=== PATIENT | female | born 1980 | race Caucasian/White ===

== ENCOUNTER 2020-03-17 11:19 | Emergency (ER) | payer OTHER ==
[2020-03-17 11:27] VITALS: BP 137/91; PULSE 100; RESP 18; TEMP 98.4
--- NOTE | 2020-03-17 11:40 | ED ---
Upper Extremity HPI - General Chief Complaint: Extremity Injury, Upper Stated Complaint: Fall/Arm injury Time Seen by Provider: 03/17/20 11:27 Source: patient, RN notes reviewed Mode of arrival: ambulatory Limitations: no limitations - History of Present Illness Initial Comments: This a 39-year-old female presents emergency from she went supple fall. Patient states she slipped on her wooden steps falling onto her left forearm. Patient states his bruising, pain. Patient has no pain at her left elbow or wrist. Patient is right-hand dominant no head injury no loss conscious no other injuries noted. - Related Data Allergies Allergy/AdvReac Type Severity Reaction Status Date / Time codeine AdvReac Nausea & Verified 03/17/20 11:27 Vomiting Review of Systems ROS Statement: Those systems with pertinent positive or pertinent negative responses have been documented in the HPI. ROS Other: All systems not noted in ROS Statement are negative. Past Medical History Past Medical History: Diabetes Mellitus Additional Past Medical History / Comment(s): DM type 1 History of Any Multi-Drug Resistant Organisms: None Reported Past Surgical History: Orthopedic Surgery Past Psychological History: No Psychological Hx Reported Smoking Status: Never smoker Past Alcohol Use History: Occasional Past Drug Use History: None Reported General Exam Limitations: no limitations General appearance: alert, in no apparent distress Head exam: Present: atraumatic, normocephalic, normal inspection Neck exam: Present: normal inspection, full ROM. Absent: tenderness, meningismus, lymphadenopathy Respiratory exam: Present: normal lung sounds bilaterally. Absent: respiratory distress, wheezes, rales, rhonchi, stridor Cardiovascular Exam: Present: regular rate, normal rhythm, normal heart sounds. Absent: systolic murmur, diastolic murmur, rubs, gallop, clicks Extremities exam: Present: other (Left arm there is ecchymosis on the ulnar aspect of the forearm, no tenderness to the wrist or elbow full range of motion neurovascular intact) Course Vital Signs 03/17/20 11:23 Temperature 98.4 F Pulse Rate 100 Respiratory 18 Rate Blood Pressure 137/91 O2 Sat by Pulse 97 Oximetry Medical Decision Making - Medical Decision Making X-rays were reviewed there are no acute fracture dislocation patient be disch arged with a left forearm contusion return parameters were discussed. Disposition Clinical Impression: Contusion of left forearm Disposition: HOME SELF-CARE Condition: Stable Instructions (If sedation given, give patient instructions): Arm Pain (ED) Additional Instructions: Please return to the Emergency Department if symptoms worsen or any other concerns. Is patient prescribed a controlled substance at d/c from ED?: No Referrals: None,Stated [Primary Care Provider] - 1-2 days Time of Disposition: 11:40
--- NOTE | 2020-03-17 11:45 | XR ---
EXAMINATION TYPE: XR forearm LT DATE OF EXAM: 03/17/2020 CLINICAL HISTORY: pain TECHNIQUE: Frontal and lateral images of the left forearm are obtained. COMPARISON: None. FINDINGS: There is no acute fracture/dislocation evident. The joint spaces appear within normal limi ts. The overlying soft tissue appears unremarkable. IMPRESSION: There is no acute fracture or dislocation. ICD 10 NO FRACTURE, INITIAL EVALUATION
== END 2020-03-17 11:51 | disposition home or self-care (01) ==
LOC: EC 11:19
DX: S50.12XA Contusion of left forearm, initial encounter (principal); W10.9XXA Fall (on) (from) unspecified stairs and steps, initial encounter; Z88.5 Allergy status to narcotic agent
CPT/HCPCS: 99283

== ENCOUNTER 2020-09-11 10:56 | Emergency (ER) | payer OTHER ==
[2020-09-11 11:08] VITALS: BP 121/86; PULSE 122; RESP 18; TEMP 98.1
--- NOTE | 2020-09-11 11:30 | ED ---
General Adult HPI - General Chief complaint: Skin/Abscess/Foreign Body Stated complaint: Boil on back Time Seen by Provider: 09/11/20 11:08 Source: patient, RN notes reviewed Mode of arrival: ambulatory Limitations: no limitations - History of Present Illness Initial comments: Patient is a pleasant 39-year-old female presenting to the emergency department with concern for a wound on her upper back. Patient believes there was a bug bite there. Patient states over the past several days it has progressively enlarged and become more discomfort. No fever. No history of similar symptoms previously. No other areas affected. - Related Data Previous Rx's Medication Instructions Recorded Sulfamethox-Tmp 800-160Mg [Bactrim 1 each PO Q12HR #14 tab 09/11/20 DS 800-160 mg] Allergies Allergy/AdvReac Type Severity Reaction Status Date / Time codeine AdvReac Nausea & Verified 09/11/20 11:04 Vomiting Review of Systems ROS Statement: Those systems with pertinent positive or pertinent negative responses have been documented in the HPI. ROS Other: All systems not noted in ROS Statement are negative. Constitutional: Denies: fever Eyes: Denies: eye pain ENT: Denies: ear pain Respiratory: Denies: cough Cardiovascular: Denies: chest pain, palpitations Endocrine: Denies: fatigue Gastrointestinal: Denies: abdominal pain Genitourinary: Denies: dysuria Musculoskeletal: Reports: as per HPI Skin: Reports: as per HPI Neurological: Denies: weakness Past Medical History Past Medical History: Diabetes Mellitus Additional Past Medical History / Comment(s): DM type 1 History of Any Multi-Drug Resistant Organisms: None Reported Past Surgical History: Orthopedic Surgery Past Psychological History: No Psychological Hx Reported Smoking Status: Never smoker Past Alcohol Use History: Occasional Past Drug Use History: None Reported General Exam Limitations: no limitations General appearance: alert, in no apparent distress Head exam: Present: normocephalic Eye exam: Present: normal appearance Respiratory exam: Present: normal lung sounds bilaterally Cardiovascular Exam: Present: regular rate, normal rhythm GI/Abdominal exam: Present: soft. Absent: tenderness Back exam: Present: other (Abscess) Skin exam: Present: other (Midline upper back near the T3 region with approximately 2 cm area of erythema with pinpoint pustule) Course Vital Signs 09/11/20 11:04 Temperature 98.1 F Pulse Rate 122 H Respiratory 18 Rate Blood Pressure 121/86 O2 Sat by Pulse 97 Oximetry Procedures - Incision & Drainage Consent Obtained: verbal consent Indication: Needle aspiration of abscess of back Site: back I&D Cleaning Method: Betadine Needle Aspiration Performed?: Yes I&D Drainage Obtained: Pus Patient Tolerated Procedure: well, no complications Disposition Clinical Impression: Back abscess Disposition: HOME SELF-CARE Condition: Stable Instructions (If sedation given, give patient instructions): Abscess (ED) Additional Instructions: Please do follow-up with primary care physician in the next couple days for recheck. Return for increased swelling, pain, redness, fever, worsening symptoms or other concerns. If symptoms worsen you may need incision and drainage with scalpel. Prescription for antibiotics has been sent to pharmacy. Prescriptions: Sulfamethox-Tmp 800-160Mg [Bactrim DS 800-160 mg] 1 each PO Q12HR #14 tab Is patient prescribed a controlled substance at d/c from ED?: No Referrals: Phill Toribio MD [Primary Care Provider] - 1-2 days Time of Disposition: 11:29
== END 2020-09-11 11:43 | disposition home or self-care (01) ==
LOC: EC 10:56
DX: L02.212 Cutaneous abscess of back [any part, except buttock and flank] (principal); E11.9 Type 2 diabetes mellitus without complications; Z88.6 Allergy status to analgesic agent
CPT/HCPCS: 10060; 87070; 87205; 99283

== ENCOUNTER 2020-10-16 08:02 | Emergency (ER) | payer OTHER ==
[2020-10-16 08:06] VITALS: BP 123/82; PULSE 100; RESP 16; TEMP 98.5
[2020-10-16] MEDS ORDERED: LIDOCAINE 1% INJ 10MG/ML (20 ML MDV) SQ ONE (08:37)
[2020-10-16] MEDS ORDERED: SULFAMETH-TMP DS STARTER PACK 2 TAB BTL PO STA (10:11)
[2020-10-16] MEDS ORDERED: CEPHALEXIN 500MG STARTER PACK 4 CAP BTL PO STA (10:11)
--- NOTE | 2020-10-16 10:16 | ED ---
General Adult HPI - General Chief complaint: Skin/Abscess/Foreign Body Stated complaint: Abcess on back Time Seen by Provider: 10/16/20 08:07 Source: patient, RN notes reviewed Mode of arrival: ambulatory Limitations: no limitations - History of Present Illness Initial comments: 39-year-old female presents to the emergency room for a chief complaint of abscess. Patient has had an abscess on her back for about a month. Patient states she did have a drain inserted antibiotics but the abscess came back. States she has been getting it to drain daily but it is not seeming to get better. Patient denies fevers. Patient denies any chest pain.Patient has no other complaints at this time including shortness of breath, chest pain, abdominal pain, nausea or vomiting, headache, or visual changes. - Related Data Previous Rx's Medication Instructions Recorded Sulfamethox-Tmp 800-160Mg [Bactrim 1 each PO Q12HR #14 tab 09/11/20 DS 800-160 mg] Cephalexin [Keflex] 500 mg PO Q6HR 10 Days #40 cap 10/16/20 Sulfamethox-Tmp 800-160Mg [Bactrim 1 tab PO Q12HR #20 tab 10/16/20 DS 800-160 mg] Allergies Allergy/AdvReac Type Severity Reaction Status Date / Time codeine AdvReac Nausea & Verified 10/16/20 08:03 Vomiting Review of Systems ROS Statement: Those systems with pertinent positive or pertinent negative responses have been documented in the HPI. ROS Other: All systems not noted in ROS Statement are negative. Past Medical History Past Medical History: Diabetes Mellitus Additional Past Medical History / Comment(s): DM type 1 History of Any Multi-Drug Resistant Organisms: None Reported Past Surgical History: Orthopedic Surgery Past Psychological History: No Psychological Hx Reported Smoking Status: Never smoker Past Alcohol Use History: Occasional Past Drug Use History: None Reported General Exam Limitations: no limitations General appearance: alert, in no apparent distress Head exam: Present: atraumatic Eye exam: Present: normal appearance, PERRL, EOMI. Absent: scleral icterus, conjunctival injection ENT exam: Present: normal exam, mucous membranes moist Neck exam: Present: normal inspection, full ROM. Absent: tenderness Respiratory exam: Present: normal lung sounds bilaterally. Absent: respiratory distress, wheezes Cardiovascular Exam: Present: regular rate, normal rhythm, normal heart sounds GI/Abdominal exam: Present: soft, normal bowel sounds. Absent: distended, tenderness Back exam: Present: other (Patient has a 8 x 6 cm abscess on the upper back to the right. 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 Incision and drainage was performed, copious purulent material expelled. The wound was packed. Patient was started on Bactrim and Keflex. At this time it is recommended patient follow-up with general surgery. Hopefully she can get in this week to remove packing. Dr. Pyle also evaluated patient. Patient could not get in to general surgery he recommends she come back to the emergency room Wednesday or Wednesday for packing removal so that we can reevaluate the wound. She will return for any worsening symptoms. Disposition Clinical Impression: Abscess Disposition: HOME SELF-CARE Condition: Good Instructions (If sedation given, give patient instructions): Abscess (ED) Additional Instructions: Please take antibiotics as directed. Try to follow up with surgery this week to have packing removed. If you cannot get in return to the ER for removal so we can recheck it on Wednesday or Wednesday. Return to the emergency room for any worsening symptoms. In the meantime do warm soaks. Prescriptions: Sulfamethox-Tmp 800-160Mg [Bactrim DS 800-160 mg] 1 tab PO Q12HR #20 tab Cephalexin [Keflex] 500 mg PO Q6HR 10 Days #40 cap Is patient prescribed a controlled substance at d/c from ED?: No Referrals: Phill Toribio MD [Primary Care Provider] - 1-2 days Tere Dowd MD [STAFF PHYSICIAN] - 1-2 days Time of Disposition: 10:11
== END 2020-10-16 10:32 | disposition home or self-care (01) ==
LOC: EC 08:02
DX: L02.212 Cutaneous abscess of back [any part, except buttock and flank] (principal); E10.9 Type 1 diabetes mellitus without complications; Z88.5 Allergy status to narcotic agent
CPT/HCPCS: 87070; 87205; 10061; 99283; J2001; 87077; 87186

== ENCOUNTER 2020-10-19 11:03 | Emergency (ER) | payer OTHER ==
--- NOTE | 2020-10-19 11:45 | ED ---
Recheck HPI - General Chief Complaint: Recheck/Abnormal Lab/Rx Stated Complaint: abscess-revisit Time Seen by Provider: 10/19/20 11:23 Source: patient Mode of arrival: ambulatory Limitations: no limitations - History of Present Illness Initial Comments: 39-year-old female presents to emergency department for a chief complaint of removing packing from an abscess. Patient reports she was advised to follow-up with the general surgeon but is not able to see one. States she came here to have the packing removed from her back. States it is still draining yellow discharge. States she has been taking her Bactrim and Keflex as prescribed. She denies any fevers or chills at home. She reports that she was changing the dressings as prescribed. She is a type I diabetic. - Related Data Previous Rx's Medication Instructions Recorded Sulfamethox-Tmp 800-160Mg [Bactrim 1 each PO Q12HR #14 tab 09/11/20 DS 800-160 mg] Cephalexin [Keflex] 500 mg PO Q6HR 10 Days #40 cap 10/16/20 Sulfamethox-Tmp 800-160Mg [Bactrim 1 tab PO Q12HR #20 tab 10/16/20 DS 800-160 mg] Allergies Allergy/AdvReac Type Severity Reaction Status Date / Time codeine AdvReac Nausea & Verified 10/19/20 11:20 Vomiting Review of Systems ROS Statement: Those systems with pertinent positive or pertinent negative responses have been documented in the HPI. ROS Other: All systems not noted in ROS Statement are negative. Past Medical History Past Medical History: Diabetes Mellitus Additional Past Medical History / Comment(s): DM type 1 History of Any Multi-Drug Resistant Organisms: None Reported Past Surgical History: Orthopedic Surgery Past Psychological History: No Psychological Hx Reported Smoking Status: Never smoker Past Alcohol Use History: Occasional Past Drug Use History: None Reported General Exam Limitations: no limitations General appearance: alert, in no apparent distress Head exam: Present: atraumatic, normocephalic, normal inspection Eye exam: Present: normal appearance, PERRL, EOMI Pupils: Present: normal accommodation ENT exam: Present: normal exam, normal oropharynx, mucous membranes moist Neck exam: Present: normal inspection, full ROM. Absent: tenderness Respiratory exam: Present: normal lung sounds bilaterally. Absent: respiratory distress Cardiovascular Exam: Present: regular rate, normal rhythm, normal heart sounds. Absent: systolic murmur Extremities exam: Present: normal inspection, full ROM Back exam: Present: full ROM. Absent: normal inspection (We'll draining abscess on the midthoracic region. Measuring about 7 cm in diameter. Nose a lytic skin changes around the abscess), tenderness (Minimal tenderness) Neurological exam: Present: alert, oriented X3 Psychiatric exam: Present: normal affect, normal mood Skin exam: Present: warm, dry, intact, normal color Course Vital Signs 10/19/20 10/19/20 11:18 12:33 Temperature 98.3 F 98.1 F Pulse Rate 101 H 80 Respiratory 18 17 Rate Blood Pressure 120/84 117/67 O2 Sat by Pulse 99 99 Oximetry Medical Decision Making - Medical Decision Making 39-year-old female presents to emergency department with a chief complaint of an abscess. A physical examination, I was able to remove the packing and still draining quite a bit of pustular discharge. After removed all of the available discharge, I cleaned the area and applied new packing until she is able to see the general surgeon on Wednesday. I advised to continue taking the antibiotics. Return parameters were discussed with patient is understanding and agreeable. Case discussed with Dr. Pyle. Disposition Clinical Impression: Encounter for wound re-check Disposition: HOME SELF-CARE Condition: Stable Instructions (If sedation given, give patient instructions): Abscess (ED) Additional Instructions: Please return to the Emergency Department if symptoms worsen or any other concerns. Is patient prescribed a controlled substance at d/c from ED?: No Referrals: Phill Toribio MD [Primary Care Provider] - 1-2 days Time of Disposition: 11:45
[2020-10-19 12:34] VITALS: BP 117/67; PULSE 80; RESP 17; TEMP 98.1
== END 2020-10-19 12:34 | disposition home or self-care (01) ==
LOC: EC 11:03
DX: Z48.00 Encounter for change or removal of nonsurgical wound dressing (principal); E10.9 Type 1 diabetes mellitus without complications
CPT/HCPCS: 99282

== ENCOUNTER 2020-10-25 15:25 | Day surgery (SDC) | payer OTHER ==
[2020-10-24 10:33] VITALS: BMI 21.2
--- NOTE | 2020-10-25 12:05 | P.GSHP ---
History of Present Illness H&P Date: 10/25/20 CHIEF COMPLAINT: Back mass HISTORY OF PRESENT ILLNESS: The patient is a 39 year-old female with mass along the mid back and drainage despite antibiotics and prior drainage. She presents today for surgical drainage and possible excision. PAST MEDICAL HISTORY: Please see list. PAST SURGICAL HISTORY: Please see list. MEDICATIONS: Please see list. ALLERGIES: Please see list. SOCIAL HISTORY: Please see list. FAMILY HISTORY: No reports of Crohn disease or ulcerative colitis. REVIEW OF ORGAN SYSTEMS: CONSTITUTIONAL: No reports of fevers or chills. GI: Denies any blood in stools or constipation. PHYSICAL EXAM: VITAL SIGNS: Stable Musculoskeletal: No clubbing cyanosis or edema SKIN: Mid back lesion 5 cm with purulent drainage GENERAL: Well developed and in no acute distress. Pleasant. HEENT: No sclera icterus. Extraocular movements grossly intact. Moist buccal mucosa. Head is atraumatic, normocephalic. Hears conversational speech. No nasal drainage. NECK: Supple without lymphadenopathy. No JV distention. CHEST: Non-labored respirations and equal bilateral excursions. CARDIOVASCULAR: Regular rate and rhythm. Palpable 2+ radial pulses. ABDOMEN: Soft. Non-tender. Nondistended. NEUROLOGIC: No focal or lateralizing signs. PSYCH: Appropriate affect. Alert and oriented to person, place and time. ASSESSMENT: 1. Mid back mass with drainage PLAN: 1. Will proceed of drainage of back mass with possible excision of subcutaneous tumor along the back. 2. DVT prophylaxis. 3. Antibiotic prophylaxis. 4. Time of recovery, at least one week. Past Medical History Past Medical History: Blood Disorder, Diabetes Mellitus Additional Past Medical History / Comment(s): DM type 1, MTHFR (diagnosed after miscarriages & received heparin with after that.)., Wound on back- open and draining. History of Any Multi-Drug Resistant Organisms: None Reported Past Surgical History: Orthopedic Surgery Additional Past Surgical History / Comment(s): 3 ACL reconstructions right knee, guide wire removal right knee, arthroscopy left knee. Past Anesthesia/Blood Transfusion Reactions: No Reported Reaction Past Psychological History: No Psychological Hx Reported Smoking Status: Former smoker Past Alcohol Use History: Occasional Additional Past Alcohol Use History / Comment(s): quit smoking 2006, hx of 1/2 ppd, started smoking age 19. Past Drug Use History: None Reported - Past Family History Mother Family Medical History: No Reported History Medications and Allergies Home Medications Medication Instructions Recorded Confirmed Type Cephalexin [Keflex] 500 mg PO Q6HR 10 Days #40 cap 10/16/20 10/24/20 Rx Sulfamethox-Tmp 800-160Mg [Bactrim 1 tab PO Q12HR #20 tab 10/16/20 10/24/20 Rx DS 800-160 mg] Ibuprofen [Motrin Ib] 800 mg PO BID 10/24/20 10/24/20 History Insulin NPH Human Isophane 20 units SQ HS 10/24/20 10/24/20 History [Novolin N Flexpen] Insulin Regular, Human [Novolin R 8 units SQ BID 10/24/20 10/24/20 History Flexpen] Allergies Allergy/AdvReac Type Severity Reaction Status Date / Time codeine AdvReac Nausea & Verified 10/24/20 10:08 Vomiting
[~2020-10-25 15:25] MED LIST: ACETAMINOPHEN TAB 500 MG TAB PO PRN; HEPARIN SODIUM,PORCINE/PF 5,000 UNIT/0.5 ML SYRINGE SQ PRN; MELOXICAM 7.5 MG TAB PO PRN
[2020-10-25 16:27] VITALS: RESP 16; TEMP 98.9
[2020-10-25] MEDS ORDERED: LACTATED RINGERS 1,000 ML IV ONE (16:31)
[2020-10-25 16:36] LABS: Glucose,Whole Blood 377 mg/dL (75-99)
[2020-10-25] MEDS ORDERED: ONDANSETRON 4 MG/2 ML VIAL ONE (16:41)
[2020-10-25 16:42] LABS: Basophils # (A) 0.1 k/uL (0-0.2); Basophils % (A) 1 %; Eosinophils # (A) 0.1 k/uL (0-0.7); Eosinophils % (A) 3 %; HCT 37.1 % (34.0-46.0); HGB 12.7 gm/dL (11.4-16.0); Lymphocytes # (A) 1.3 k/uL (1.0-4.8); Lymphocytes % (A) 26 %; MCH 31.4 pg (25.0-35.0); MCHC 34.2 g/dL (31.0-37.0); MCV 91.9 fL (80.0-100.0); Mean Platelet Volume 7.7; Monocytes # (A) 0.2 k/uL (0-1.0); Monocytes % (A) 4 %; Neutrophils # (A) 3.2 k/uL (1.3-7.7); Neutrophils % (A) 63 %; Platelet Count 345 k/uL (150-450); RBC 4.04 m/uL (3.80-5.40); RDW 12.7 % (11.5-15.5); WBC 5.1 k/uL (3.8-10.6)
[2020-10-25] MEDS ORDERED: INSULIN ASPART (NovoLOG) 100 UNIT/ML VIAL SQ ONE ×2 (16:49→17:42)
[2020-10-25 17:38] LABS: Glucose,Whole Blood 305 mg/dL (75-99)
[2020-10-25] MEDS ORDERED: MIDAZOLAM 2 MG/2 ML VIAL ONE (18:27)
[2020-10-25] MEDS ORDERED: fentaNYL (PF) 50 MCG/ML 2 ML AMP ONE (18:27)
[2020-10-25] MEDS ORDERED: LIDOCAINE 1% INJ 10MG/ML (20 ML MDV) ONE (18:27)
[2020-10-25] MEDS ORDERED: KETAMINE 10 MG/ML 20 ML VIAL ONE (18:27)
[2020-10-25] MEDS ORDERED: PROPOFOL 10 MG/ML 20 ML VIAL IV ONE (18:27)
[2020-10-25 18:31] LABS: Glucose,Whole Blood 182 mg/dL (75-99)
[2020-10-25] MEDS ORDERED: LIDOCAINE 1%-EPI 1:100,000 20 ML VIAL SQ ONE (18:42)
--- NOTE | 2020-10-25 19:29 | P.OP ---
Date of Procedure: 10/25/20 Description of Procedure: SURGEON: TERE DOWD MD ROOFER APPLICATOR: NONE. PREOPERATIVE DIAGNOSES: 1. Complex back abscess, 10 x 7 cm 2. Type 1 insulin-dependent diabetes POSTOPERATIVE DIAGNOSES: 1. Complex back abscess, 10 x 7 cm 2. Type 1 insulin-dependent diabetes OPERATION: 1. Incision and drainage of complex intramuscular upper back abscess, 10 x 7 cm 2. Mechanical debridement using 1 L of pulse lavage of complex upper back abscess, ANESTHESIA: Gen. ESTIMATED BLOOD LOSS: 5 mL. SPECIMENS REMOVED: 1. Aerobic, anaerobic culture of back abscess COMPLICATIONS: None. FINDINGS: 1. Subfascial intramuscular complex back abscess, 10 x 7 cm INDICATIONS: The patient subacute poorly draining erythematous large abscess of the upper back. Given the complexity and size of his abscess with sepsis, surgical intervention was advised. Benefits and risks were reviewed. Informed consent was obtained. DESCRIPTION OF PROCEDURE: Patient was brought into the operating room and laid in supine position. After adequate general induction, she was re-positioned in left lateral position The back was prepped and draped in a standard sterile fashion. Attention was then brought to the complex upper back mass measured 10 x 7 cm. Using a #15 blade a transverse incision was made along the skin tension lines. A hemostat was used to actually dissect through the subcutaneous tissue whereby the abscess was subfascial to the muscle. Immediately, an egress of benoit purulence was found and aerobic and anaerobic cultures were obtained. Using a pulse lavage of 1 L normal saline for mechanical debridement to the fascia, the deep subcutaneous pocket was copiously irrigated. Dilute hydrogen peroxide was used to irrigate the wound. A quarter-inch [place] drain was secured to the skin using 2-0 nylon. The wound was covered using Kerlix roll and 4 x 4 to cover the wound with 6 inch Medipore tape. The patient was awoken from anesthesia. All sponge and instrument counts were verified correct by surgical technology instructor. The patient was transferred to postanesthesia care unit in stable condition and pain free. Plan - Discharge Summary Discharge Rx Participant: No New Discharge Prescriptions: New Ibuprofen [Motrin] 600 mg PO Q8HR PRN #30 tab PRN Reason: Pain Acetaminophen [Tylenol] 650 mg PO Q4H #30 tab Continue Sulfamethox-Tmp 800-160Mg [Bactrim DS 800-160 mg] 1 tab PO Q12HR #20 tab Cephalexin [Keflex] 500 mg PO Q6HR 10 Days #40 cap Insulin NPH Human Isophane [Novolin N Flexpen] 20 units SQ HS Insulin Regular, Human [Novolin R Flexpen] 6 units SQ BID Discontinued Ibuprofen [Motrin Ib] 800 mg PO BID Discharge Medication List Cephalexin [Keflex] 500 mg PO Q6HR 10 Days #40 cap 10/16/20 [Rx] Sulfamethox-Tmp 800-160Mg [Bactrim DS 800-160 mg] 1 tab PO Q12HR #20 tab 10/16/20 [Rx] Insulin NPH Human Isophane [Novolin N Flexpen] 20 units SQ HS 10/24/20 [History] Insulin Regular, Human [Novolin R Flexpen] 6 units SQ BID 10/24/20 [History] Acetaminophen [Tylenol] 650 mg PO Q4H #30 tab 10/25/20 [Rx] Ibuprofen [Motrin] 600 mg PO Q8HR PRN #30 tab 10/25/20 [Rx] Follow up Appointment(s)/Referral(s): Tere Dowd MD [STAFF PHYSICIAN] - 10/31/20 Patient Instructions/Handouts: Incision and Drainage (ED), *Surgery [facility] - Managing Your Pain After Surgery Without Opioids Activity/Diet/Wound Care/Special Instructions: Change dressing daily. First dressing change tomorrow then shower. Cleanse with hydrogen peroxide full strength after showering Cover with gauze and Medipore tape supplied. Discharge Disposition: HOME SELF-CARE
[2020-10-25 19:31] VITALS: BP 113/73; PULSE 98
[2020-10-25 19:31] LABS: Glucose,Whole Blood 119 mg/dL (75-99)
== END 2020-10-25 19:52 | disposition home or self-care (01) ==
LOC: OR 15:25
PROVIDERS: ATTEND Surgery Plastic and Reconstructive Surgery
DX: L02.212 Cutaneous abscess of back [any part, except buttock and flank] (principal); E10.9 Type 1 diabetes mellitus without complications; Z79.4 Long term (current) use of insulin; Z98.890 Other specified postprocedural states
CPT/HCPCS: 10061; 11043; 11046; 81025; 85025; 87070; 87205; 87075; 87077; 87186; J2250; J0690; J2405; J2001; J3010; J2704; J1644

== ENCOUNTER → 2020-11-18 | Outpatient (CLI) | payer OTHER ==
--- NOTE | 2020-11-18 13:58 | US ---
EXAMINATION TYPE: US mass soft tissue chest/back DATE OF EXAM: 11/18/2020 COMPARISON: NONE CLINICAL HISTORY: L02.212 Cutaneous abscess of back. Mid upper back scanned in area of abscess drain. No obvious fluid or increased blood flow in region. Drain seen still in place. IMPRESSION: Limited scan to the soft tissues. No evident fluid collection.
== END | disposition home or self-care (01) ==
LOC: RADUSWWP 13:03
PROVIDERS: ATTEND Surgery Plastic and Reconstructive Surgery
DX: L02.212 Cutaneous abscess of back [any part, except buttock and flank] (principal)

== ENCOUNTER → 2022-07-20 | Day surgery (SDC) | payer OTHER ==
[2022-07-16 13:51] VITALS: BMI 22.1
[~2022-07-20] MED LIST changes: -ACETAMINOPHEN TAB 500 MG TAB PO PRN; -HEPARIN SODIUM,PORCINE/PF 5,000 UNIT/0.5 ML SYRINGE SQ PRN; -MELOXICAM 7.5 MG TAB PO PRN; +SODIUM CHLORIDE 0.9% 1,000 ML IV SCH
[2022-07-20 14:26] LABS: Glucose,Whole Blood 62 mg/dL (70-110)
--- NOTE | 2022-07-21 17:01 | P.EPPROC ---
- EP Procedure Note Electrophysiology Procedure Note: Diagnosis 41-year-old female with Recurrent presyncope Underlying diabetes, on insulin Twelve-lead EKG shows sinus rhythm normal AL narrow QRS normal ST segments normal QT interval Tilt table test per protocol Baseline heart rate 91 beats a minute Baseline blood pressure 134/85 mmHg Patient was tilted upright at an angle of 70 per protocol She had an immediate drop in blood pressure to 113/77 mmHg and a heart rate increased to 98 beats a minute Subsequently, heart rate increased to 109 beats a minute associated with a gradual drop in her blood pressure to the mid 90s systolic. 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
== END ==
LOC: CATHEP 12:44
PROVIDERS: ATTEND Internal Medicine Clinical Cardiac Electrophysiology
DX: I95.1 Orthostatic hypotension (principal); E10.649 Type 1 diabetes mellitus with hypoglycemia without coma; Z88.2 Allergy status to sulfonamides; Z88.5 Allergy status to narcotic agent; Z88.8 Allergy status to other drugs, medicaments and biological substances; Z79.899 Other long term (current) drug therapy; Z82.49 Family history of ischemic heart disease and other diseases of the circulatory system
CPT/HCPCS: 81025; 93660

== ENCOUNTER → 2022-10-13 | Outpatient (CLI) | payer OTHER ==
--- NOTE | 2022-10-14 08:20 | MM ---
Reason for Exam: Screening (asymptomatic). Baseline mammogram. Patient History: Menarche at age 17. First Full-Term at age 27. Maternal grandmother had breast cancer. Paternal grandmother had breast cancer. Last menstrual period: 09/30/2022 Risk Values: Jessica 5 year model risk: 0.5%. NCI Lifetime model risk: 10.2%. Prior Study Comparison: Patient's first Mammogram. Tissue Density: The breast tissue is extremely dense which could obscure a lesion on mammography. Findings: Analyzed By CAD. There is no suspicious group of microcalcifications or suspicious mass in either breast. Benign calcifications within the left breast. Overall Assessment: Benign, BI-RAD 2 Management: Screening Mammogram of both breasts in 1 year. A clinical breast exam by your physician is recommended on an annual basis and results should be correlated with mammographic findings. Note on Jessica scores and lifetime risk: 1. A Jessica score greater than 3% is considered moderate risk. If this is the case, consider specialist referral to assess eligibility for a risk reducing agent. If overall lifetime risk for the development of breast cancer is 20% or higher, the patient may qualify for future screening with alternating mammogram and breast MRI. Electronically signed and approved by: Mo Kellogg D.O.
== END | disposition home or self-care (01) ==
LOC: RADMAMWWP 06:57
PROVIDERS: ATTEND Family Medicine
DX: Z12.31 Encounter for screening mammogram for malignant neoplasm of breast (principal); Z80.3 Family history of malignant neoplasm of breast
CPT/HCPCS: 77067

== ENCOUNTER → 2023-02-18 | Outpatient (CLI) | payer OTHER ==
--- NOTE | 2023-02-18 18:13 | US ---
EXAMINATION TYPE: US pelvic complete DATE OF EXAM: 02/18/2023 COMPARISON: NONE CLINICAL INDICATION: Female, 42 years old with history of N92.4 EXCESSIVE BLEEDING IN THE PREMENOPAUS AL EMMA; Irregular periods x a couple months. Pt states her periods have gotten shorter, but heavier. . Hx of 1 D&C TECHNIQUE: . Transabdominal sonographic images of the pelvis were acquired. Date of LMP: 02/13/23 EXAM MEASUREMENTS: Uterus: 8.5 x 4.5 x 3.5 cm Endometrial Stripe: 0.4 cm Right Ovary: 3.5 x 1.9 x 1.3 cm Left Ovary: 3.8 x 3.0 x 1.5 cm 1. Uterus: Anteverted Hyperechoic calcification seen in cervix measuring 0.4 x 0.5 x 0.2cm 2. Endometrium: wnl 3. Right Ovary: Complex cystic area seen measuring 1.7 x 1.4 x 1.2cm 4. Left Ovary: Dominant follicle seen 5. Bilateral Adnexa: wnl 6. Posterior cul-de-sac: wnl Urinary bladder is sonolucent. The posterior wall is normal IMPRESSION: 1. Small complex cyst right ovary. Follow-up in 6 weeks or following the next normal menstrual period recommended
== END | disposition home or self-care (01) ==
LOC: RADUSWWP 16:09
PROVIDERS: ATTEND Obstetrics & Gynecology
DX: N83.291 Other ovarian cyst, right side (principal); N92.4 Excessive bleeding in the premenopausal period
CPT/HCPCS: 76856

== ENCOUNTER → 2023-03-29 | Outpatient (CLI) | payer OTHER ==
--- NOTE | 2023-03-30 13:01 | US ---
EXAMINATION TYPE: US pelvis complete DATE OF EXAM: 03/29/2023 COMPARISON: 02/18/22 CLINICAL INDICATION: Female, 42 years old with history of N83.201 UNSPECIFIED OVARIAN CYST, RIGHT RAKESH E; follow up cyst TECHNIQUE: Transabdominal (TA). Transabdominal sonographic images of the pelvis were acquired. Date of LMP: 03/16/2023 EXAM MEASUREMENTS: Uterus: 8.7x3.4x4.5 cm Endometrial Stripe: 0.6 cm Right Ovary: 3.2x3.4x1.4 cm Left Ovary: 3.3x2.5x2.0 cm 1. Uterus: Anteverted and otherwise wnl 2. Endometrium: wnl 3. Right Ovary: [employer] notes: prior cyst not identified with certainty. May have decreased in s ize and is now 0.8x1.0x1.0cm or ruptured as there is free fluid adjacent to ovary. 4. Left Ovary: [employer] notes: cystic area 1.8x1.8x1.9cm, cyst vs. dominant follicle 5. Bilateral Adnexa: Mild free fluid adjacent to right ovary. Otherwise, mostly obscured by overlying bowel gas 6. Posterior cul-de-sac: wnl IMPRESSION: 1. A 1 cm benign cyst or follicle remains in the right ovary. Small amount of free fluid adjacent to the right ovary is likely physiologic. 2. A 1.9 cm dominant follicle or functional cyst of the left ovary.
== END | disposition home or self-care (01) ==
LOC: RADUSWWP 15:14
PROVIDERS: ATTEND Obstetrics & Gynecology
DX: N83.02 Follicular cyst of left ovary (principal); N83.01 Follicular cyst of right ovary
CPT/HCPCS: 76856

== ENCOUNTER 2023-10-11 22:50 | Inpatient (IN) | payer OTHER ==
--- NOTE | 2023-10-11 23:41 | XR ---
EXAMINATION TYPE: XR chest 1V portable DATE OF EXAM: 10/11/2023 COMPARISON: NONE HISTORY: Abdominal pain, upright. Vomiting. TECHNIQUE: Single portable frontal view of the chest is obtained. FINDINGS: There is no focal air space opacity, pleural effusion, or pneumothorax seen. The cardiac silhouette size is within normal limits. The osseous structures are intact. IMPRESSION: No acute cardiopulmonary process.
[2023-10-11] MEDS: PANTOPRAZOLE 40 MG/10 ML VIAL IVP STA (23:48)
[2023-10-11] MEDS: ONDANSETRON 4 MG/2 ML VIAL IVP STA (23:48)
[2023-10-12] MEDS: SODIUM CHLORIDE 0.9% 500 ML 500 ML IV STA ×2 (00:01→01:25)
[2023-10-12] MEDS: SODIUM CHLORIDE 0.9% 1,000 ML IV STA (00:01)
--- NOTE | 2023-10-12 00:11 | ED ---
General Adult HPI - General Chief complaint: Nausea/Vomiting/Diarrhea Stated complaint: Vomiting Time Seen by Provider: 10/11/23 23:00 Source: patient, RN notes reviewed, old records reviewed Mode of arrival: ambulatory Limitations: no limitations - History of Present Illness Initial comments: Patient is a 42-year-old female presents emergency department complaining of nausea and vomiting. Has been ongoing since 3 PM. Has had numerous episodes of nausea with somewhat dark green emesis that has gotten somewhat darker, towards black this evening. No abdominal pain or chest pain. No shortness of breath. Does have a history of diabetes. Sugars have been in the 200s. Patient has no other acute complaints at this time. Denies fevers, chills, cough, diarrhea, constipation. No history of abdominal surgeries. Presents for further ev aluation at this time.No history of alcohol abuse. No frequent use of Tylenol or Motrin. No history of ulcers. No history of persistent NSAID use. No history of ulcers. No history of alcohol abuse. - Related Data Home Medications Medication Instructions Recorded Confirmed Insulin Aspart [NovoLOG] 0 units SQ ACHS PRN 07/16/22 07/16/22 Insulin Glargine,Hum.rec.anlog 32 units SQ HS 07/16/22 07/16/22 [Toujeo Solostar] Allergies Allergy/AdvReac Type Severity Reaction Status Date / Time codeine AdvReac Nausea & Verified 07/16/22 13:43 Vomiting lisinopril AdvReac Cough Verified 10/11/23 22:55 Review of Systems ROS Statement: Those systems with pertinent positive or pertinent negative responses have been documented in the HPI. Review of Systems: CONST: Denies fever EYES: Denies blurry vision ENT: Denies nasal congestion C/V: Denies Chest pain RESP: Denies shortness of breath GI: Denies abdominal pain : Denies dysuria SKIN: Denies rash. MSK: Denies joint pain. NEURO: Denies headache ROS Other: All systems not noted in ROS Statement are negative. Past Medical History Past Medical History: Blood Disorder, Diabetes Mellitus Additional Past Medical History / Comment(s): See Dr Wilson's H&P,dizziness, DM type 1, MTHFR (diagnosed after miscarriages & received heparin with after that.)., Wound on back- healed History of Any Multi-Drug Resistant Organisms: None Reported Past Surgical History: Orthopedic Surgery Additional Past Surgical History / Comment(s): 3 ACL reconstructions right knee, guide wire removal right knee, arthroscopy left knee,D&C ,I&D back wound w/ drain Past Anesthesia/Blood Transfusion Reactions: No Reported Reaction Additional Past Anesthesia/Blood Transfusion Reaction / Comment(s): no hx blood transfusion Past Psychological History: No Psychological Hx Reported Smoking Status: Former smoker Past Alcohol Use History: Occasional Past Drug Use History: None Reported - Past Family History Mother Family Medical History: No Reported History General Exam - General Exam Comments Initial Comments: General: Appears in mild to moderate distress secondary to nausea and vomiting HEAD: Normal with no signs of head trauma. EYES: PERRLA, EOMI, conjunctiva normal, no discharge. ENT: Hearing grossly intact, normal oropharynx. Mildly dry mucous membranes. RESPIRATORY: Clear breath sounds bilaterally. No wheezes, rales, or rhonchi. C/V: Regular rate and rhythm. S1 and S2 auscultated, no edema, peripheral pulses 2+ and intact throughout ABD: Abd is soft, nontender, nondistended. No guarding. No rebound tenderness. No peritoneal signs. EXT: Normal range of motion, no obvious deformity SKIN: No rashes or lesions observed on exposed skin. NEURO: Alert and oriented x 4. Cranial nerves II-XII intact. No focal sensory or strength deficits. Limitations: no limitations Course Vital Signs 10/11/23 10/12/23 22:52 00:54 Temperature 98.2 F Pulse Rate 114 H 97 Respiratory 16 18 Rate Blood Pressure 108/68 O2 Sat by Pulse 99 98 Oximetry Medical Decision Making - Medical Decision Making Was pt. sent in by a medical professional or institution (, PA, ACTIONSCRIPT DEVELOPER, urgent care, hospital, or longterm...) When possible be specific @ -No Did you speak to anyone other than the patient for history (EMS, parent, family, police, friend...)? What history was obtained from this source @ -No Did you review nursing and triage notes (agree or disagree)? Why? @ -I reviewed and agree with nursing and triage notes Were old charts reviewed (outside hosp., previous admission, EMS record, old EKG, old radiological studies, urgent care reports/EKG's, longterm records)? Report findings @ -No old charts were reviewed Differential Diagnosis (chest pain, altered mental status, abdominal pain women, abdominal pain men, vaginal bleeding, weakness, fever, dyspnea, syncope, headache, dizziness, GI bleed, back pain, seizure, CVA, palpatations, mental health, musculoskeletal)? @ -Dehydration, electrolyte abnormalities, DKA, viral syndrome, intractable nausea and vomiting. This list is not all inclusive. EKG interpreted by me (3pts min.). @ -As above X-rays interpreted by me (1pt min.). @ -Chest x-ray reveals no free air under the diaphragm. No acute cardiopulmon hamida process. CT interpreted by me (1pt min.). @ -None done U/S interpreted by me (1pt. min.). @ -No What testing was considered but not performed or refused? (CT, X-rays, U/S, labs)? Why? @ -None What meds were considered but not given or refused? Why? @ -None Did you discuss the management of the patient with other professionals (professionals i.e. , PA, ACTIONSCRIPT DEVELOPER, lab, RT, psych nurse, social services manager, technology support analyst, teacher, weapons electrical engineering officer, rn case manager)? Give summary @ -Discussed with Dr. Pickard regarding the patient's DKA workup as well as the positive gastric occult blood. With the patient having stable hemoglobin as well as normal coags and not being high risk including no history of alcohol abuse, persistent NSAID or Tylenol use. Was in agreement with keeping the patient at our hospital at this time. Was smoking cessation discussed for >3mins.? @ -No Was critical care preformed (if so, how long)? @ -Yes, 41 minutes Were there social determinants of health that impacted care today? How? (Homelessness, low income, unemployed, alcoholism, drug addiction, transportation, low edu. Level, literacy, decrease access to med. care, correction, rehab)? @ -No Was there de-escalation of care discussed even if they declined (Discuss DNR or withdrawal of care, Hospice)? DNR status @ -No What co-morbidities impacted this encounter? (DM, HTN, Smoking, COPD, CAD, Cancer, CVA, ARF, Chemo, Hep., AIDS, mental health diagnosis, sleep apnea, morbid obesity)? @ -None Was patient admitted / discharged? Hospital course, mention meds given and route, prescriptions, significant lab abnormalities, going to OR and other pertinent info. @ -Patient presents to the emergency department complaining of intractable nausea and vomiting since 3 PM this afternoon. Emesis is a darker green color, progressing to more darker green versus black color this evening upon presentation. We will obtain abdominal labs. She will be symptomatically treat with IV fluids, Protonix, Zofran. Patient will be given a total of a liter and a half of fluids. Patient was in agreement this plan. EKG shows no signs of acute ischemia.Chest x-ray shows no free air under the diaphragm. No obvious acute cardiopulmonary process. Labs remarkable for leukocytosis of 17.3 which is likely dehydration. Hemoglobin is normal at 14.0. Coags are normal. Patient's electrolytes and VBG consistent with DKA. Positive acetone. Gastric occult blood did return positive. I discussed at length with the patient the results of her workup. I did speak with the admitting physician, Dr. Pickard who was in agreement with the plan for admission. I did update him and discussed the findings of the positive gastric occult blood and as the patient has no risk factors for GI bleeding was amenable for observing the patient at our hospital at this time despite having no GI coverage. I did discuss this the patient and she was also in agreement with remaining at our hospital. Patient placed on DKA protocol including insulin drip, IV fluids. Patient will be admitted at this time. No subsequent episodes of nausea or vomiting after medication administration. Undiagnosed new problem with uncertain prognosis? @ -No Drug Therapy requiring intensive monitoring for toxicity (Heparin, Nitro, Insulin, Cardizem)? @ -Insulin Were any procedures done? @ -No Diagnosis/symptom? @ -DKA Acute, or Chronic, or Acute on Chronic? @ -Acute Uncomplicated (without systemic symptoms) or Complicated (systemic symptoms)? @ -Complicated Side effects of treatment? @ -None Exacerbation, Progression, or Severe Exacerbation] @ -No Poses a threat to life or bodily function? @ -Yes - Lab Data Result diagrams: 10/12/23 00:08 10/12/23 00:08 Lab Results 10/12/23 10/12/23 10/12/23 Range/Units 00:08 00:08 00:08 WBC 17.3 H (3.8-10.6) k/uL RBC 4.67 (3.80-5.40) m/uL Hgb 14.0 (11.4-16.0) gm/dL Hct 43.7 (34.0-46.0) % MCV 93.6 (80.0-100.0) fL MCH 30.1 (25.0-35.0) pg MCHC 32.1 (31.0-37.0) g/dL RDW 11.9 (11.5-15.5) % Plt Count 239 (150-450) k/uL MPV 9.2 Neutrophils % 93 % Lymphocytes % 4 % Monocytes % 2 % Eosinophils % 0 % Basophils % 0 % Neutrophils # 16.0 H (1.3-7.7) k/uL Lymphocytes # 0.7 L (1.0-4.8) k/uL Monocytes # 0.4 (0-1.0) k/uL Eosinophils # 0.0 (0-0.7) k/uL Basophils # 0.1 (0-0.2) k/uL Hypochromasia Slight PT 10.7 (10.0-12.5) sec INR 1.0 (<1.2) APTT 21.1 L (22.0-30.0) sec VBG pH (7.31-7.41) VBG pCO2 (37-51) mmHg VBG HCO3 (24-28) mmol/L Sodium (137-145) mmol/L Potassium (3.5-5.1) mmol/L Chloride (98-107) mmol/L Carbon Dioxide (22-30) mmol/L Anion Gap mmol/L BUN (7-17) mg/dL Creatinine (0.52-1.04) mg/dL Est GFR (CKD-EPI)AfAm (>60 ml/min/1.73 sqM) Est GFR (CKD-EPI)NonAf (>60 ml/min/1.73 sqM) Glucose (74-99) mg/dL Calcium (8.4-10.2) mg/dL Total Bilirubin (0.2-1.3) mg/dL AST (14-36) U/L ALT (4-34) U/L Alkaline Phosphatase (38-126) U/L Total Protein (6.3-8.2) g/dL Albumin (3.5-5.0) g/dL Amylase (30-110) U/L Lipase (23-300) U/L HCG, Qual Urine Color Colorless Urine Appearance Clear (Clear) Urine pH 5.5 (5.0-8.0) Ur Specific [place] 1.025 (1.001-1.035) Urine Protein Negative (Negative) Urine Glucose (UA) 4+ H (Negative) Urine Ketones 4+ H (Negative) Urine Blood Negative (Negative) Urine Nitrite Negative (Negative) Urine Bilirubin Negative (Negative) Urine Urobilinogen <2.0 (<2.0) mg/dL Ur Leukocyte Esterase Trace H (Negative) Urine RBC 1 (0-5) /hpf Urine WBC 13 H (0-5) /hpf Ur Squamous Epith Cells <1 (0-4) /hpf Urine Bacteria Rare H (None) /hpf Urine Mucus Rare H (None) /hpf Gastric Occult Blood (Negative) Acetone, Qual (Negative) 10/12/23 10/12/23 10/12/23 Range/Units 00:08 00:08 00:08 WBC (3.8-10.6) k/uL RBC (3.80-5.40) m/uL Hgb (11.4-16.0) gm/dL Hct (34.0-46.0) % MCV (80.0-100.0) fL MCH (25.0-35.0) pg MCHC (31.0-37.0) g/dL RDW (11.5-15.5) % Plt Count (150-450) k/uL MPV Neutrophils % % Lymphocytes % % Monocytes % % Eosinophils % % Basophils % % Neutrophils # (1.3-7.7) k/uL Lymphocytes # (1.0-4.8) k/uL Monocytes # (0-1.0) k/uL Eosinophils # (0-0.7) k/uL Basophils # (0-0.2) k/uL Hypochromasia PT (10.0-12.5) sec INR (<1.2) APTT (22.0-30.0) sec VBG pH 7.11 L* (7.31-7.41) VBG pCO2 28 L (37-51) mmHg VBG HCO3 9 L* (24-28) mmol/L Sodium 138 (137-145) mmol/L Potassium 4.8 (3.5-5.1) mmol/L Chloride 107 (98-107) mmol/L Carbon Dioxide <5 L* (22-30) mmol/L Anion Gap mmol/L BUN 21 H (7-17) mg/dL Creatinine 0.87 (0.52-1.04) mg/dL Est GFR (CKD-EPI)AfAm >90 (>60 ml/min/1.73 sqM) Est GFR (CKD-EPI)NonAf 84 (>60 ml/min/1.73 sqM) Glucose 268 H (74-99) mg/dL Calcium 9.8 (8.4-10.2) mg/dL Total Bilirubin 1.3 (0.2-1.3) mg/dL AST 26 (14-36) U/L ALT 24 (4-34) U/L Alkaline Phosphatase 100 (38-126) U/L Total Protein 8.0 (6.3-8.2) g/dL Albumin 5.0 (3.5-5.0) g/dL Amylase 40 (30-110) U/L Lipase 51 (23-300) U/L HCG, Qual Not Detected Urine Color Urine Appearance (Clear) Urine pH (5.0-8.0) Ur Specific [place] (1.001-1.035) Urine Protein (Negative) Urine Glucose (UA) (Negative) Urine Ketones (Negative) Urine Blood (Negative) Urine Nitrite (Negative) Urine Bilirubin (Negative) Urine Urobilinogen (<2.0) mg/dL Ur Leukocyte Esterase (Negative) Urine RBC (0-5) /hpf Urine WBC (0-5) /hpf Ur Squamous Epith Cells (0-4) /hpf Urine Bacteria (None) /hpf Urine Mucus (None) /hpf Gastric Occult Blood Positive (Negative) Acetone, Qual Positive (Negative) - EKG Data -: EKG Interpreted by Me EKG Comments: 12-lead Electrocardiogram Interpretation Note EKG was reviewed and interpreted by myself. 12-lead ECG performed at 2326 is interpreted by me as revealing sinus tachycardia at a rate of 110 beats per minute. Indeterminate axis. NC interval is 112 ms, QRS duration is 91 ms, QTc is 408 ms.. There were no ST or T wave abnormalities to suggest myocardial ischemia or injury. R wave progression across the precordium was satisfactory. By my interpretation this EKG is non-diagnostic for acute ischemia. Critical Care Time Critical Care Time: Yes Total Critical Care Time: 41 Disposition Clinical Impression: DKA (diabetic ketoacidosis) Disposition: ADMITTED IP TO THIS HOSP Condition: Serious Referrals: Nivia Leyva DO [Primary Care Provider] - 1-2 days Time of Disposition: 01:20
[2023-10-12 00:26] LABS: Basophils # (A) 0.1 k/uL (0-0.2); Basophils % (A) 0 %; Eosinophils % (A) 0 %; HCT 43.7 % (34.0-46.0); Hypochromasia Slight; Lymphocytes # (A) 0.7 k/uL (1.0-4.8); Lymphocytes % (A) 4 %; MCH 30.1 pg (25.0-35.0); MCHC 32.1 g/dL (31.0-37.0); MCV 93.6 fL (80.0-100.0); Mean Platelet Volume 9.2; Monocytes # (A) 0.4 k/uL (0-1.0); Monocytes % (A) 2 %; Neutrophils % (A) 93 %; Platelet Count 239 k/uL (150-450); RBC 4.67 m/uL (3.80-5.40); RDW 11.9 % (11.5-15.5); WBC 17.3 k/uL (3.8-10.6)
[2023-10-12 00:34] LABS: VBG PH 7.11 (7.31-7.41)
[2023-10-12 00:39] LABS: ALT 24 U/L (4-34); AST 26 U/L (14-36); African American GFR (CKD) >90 (>60 ml/min/1.73 sqM); Alkaline Phosphatase 100 U/L (38-126); Amylase 40 U/L (30-110); Blood Urea Nitrogen 21 mg/dL (7-17); Calcium 9.8 mg/dL (8.4-10.2); Chloride 107 mmol/L (98-107); Glucose 268 mg/dL (74-99); Lipase 51 U/L (23-300); Non-African American GFR(CKD) 84 (>60 ml/min/1.73 sqM); Potassium 4.8 mmol/L (3.5-5.1); Sodium 138 mmol/L (137-145); Total Bilirubin 1.3 mg/dL (0.2-1.3)
[2023-10-12 00:45] LABS: Carbon Dioxide <5 mmol/L (22-30)
[2023-10-12 00:49] LABS: Appearance,Urine Clear (Clear); Bacteria,Urine Rare /hpf; Bilirubin,Urine Negative (Negative); Blood,Urine Negative (Negative); Color,Urine Colorless; Glucose,Urine (UA) 4+ (Negative); Leukocyte Esterase,Urine Trace (Negative); Mucus,Urine Rare /hpf; Nitrite,Urine Negative (Negative); PH, Urine 5.5 (5.0-8.0); Protein,Urine Negative (Negative); RBC,Urine 1 /hpf (0-5); Specific Gravity,Urine 1.025 (1.001-1.035); Squamous Epithelial Cell,Urine <1 /hpf (0-4); Urobilinogen,Urine <2.0 mg/dL (<2.0); WBC,Urine 13 /hpf (0-5)
[2023-10-12 00:50] LABS: HCG,Qualitative Serum Not Detected
[2023-10-12] MEDS ORDERED: DEXTROSE 50% SYRINGE 50 ML IVP PRN (00:52)
[2023-10-12] MEDS ORDERED: Potassium Replacement Protocol 1 EACH MISC MISCELLANE PRN (00:52)
[2023-10-12] MEDS ORDERED: Magnesium Replacement Protocol 1 EACH MISC MISCELLANE PRN (00:52)
[2023-10-12 00:53] LABS: Ketones,Urine 4+ (Negative)
[2023-10-12 00:54] LABS: Prothrombin Time 10.7 sec (10.0-12.5)
[2023-10-12 01:01] LABS: Partial Thromboplastin Time 21.1 sec (22.0-30.0)
[2023-10-12] MEDS ORDERED: NALOXONE 0.4 MG/ML 1 ML VIAL IV PRN (01:21)
[2023-10-12] MEDS ORDERED: ACETAMINOPHEN TAB 325 MG TAB PO PRN (01:21)
[2023-10-12] MEDS: INSULIN REGULAR BOLUS (FROM DRIP BAG) IV ONE (01:48)
[2023-10-12] MEDS: INSULIN REGULAR 100 UNIT in SODIUM CHLORIDE 0.9% 100 ML IV SCH (01:49)
[2023-10-12] MEDS: SODIUM CHLORIDE 0.9% 1,000 ML IV SCH (01:52)
--- NOTE | 2023-10-12 02:15 | US ---
EXAMINATION TYPE: US gallbladder DATE OF EXAM: 10/12/2023 COMPARISON: NONE CLINICAL INDICATION: Female, 42 years old with history of n/v; n/v TECHNIQUE: Multiple sonographic images of the right upper quadrant are obtained. FINDINGS: EXAM MEASUREMENTS: Liver Length: 14.1 cm Gallbladder Wall: 0.1 cm CBD: 0.5 cm Right Kidney: 11.1 x 4.8 x 4.5 cm CUTTING TABLE OPERATOR FIRST NOTES: Pancreas: parts seen appear wnl Liver: Hyperechoic area seen in rt lobe measuring 2.1 x 1.8 x 2.1cm Gallbladder: wnl Evidence for sonographic Mulligan's sign: No CBD: wnl Right Kidney: wnl IMPRESSION: No gallstones or ultrasound evidence for acute cholecystitis.
[2023-10-12] MEDS: D5-0.45% NACL WITH KCL 20MEQ/L 1,000 ML IV SCH (02:40)
[2023-10-12 02:54] LABS: Glucose,Whole Blood 162 mg/dL (70-110)
[2023-10-12 03:48] LABS: Glucose,Whole Blood 146 mg/dL (70-110)
[2023-10-12 05:04] LABS: Glucose,Whole Blood 136 mg/dL (70-110)
[2023-10-12 05:59] LABS: Glucose,Whole Blood 140 mg/dL (70-110)
[2023-10-12] MEDS: ONDANSETRON 4 MG/2 ML VIAL IVP PRN (06:48)
[2023-10-12 07:21] LABS: Glucose,Whole Blood 186 mg/dL (70-110)
[2023-10-12 08:15] LABS: African American GFR (CKD) >90 (>60 ml/min/1.73 sqM); Anion Gap 16 mmol/L; Blood Urea Nitrogen 18 mg/dL (7-17); Chloride 116 mmol/L (98-107); Glucose 216 mg/dL (74-99); Non-African American GFR(CKD) 90 (>60 ml/min/1.73 sqM); Phosphorus 2.9 mg/dL (2.5-4.5); Potassium 4.6 mmol/L (3.5-5.1); Sodium 138 mmol/L (137-145)
[2023-10-12 08:18] LABS: Carbon Dioxide 6 mmol/L (22-30)
[2023-10-12] MEDS: PANTOPRAZOLE 40 MG/10 ML VIAL IV SCH (08:18)
[2023-10-12 08:21] LABS: Glucose,Whole Blood 240 mg/dL (70-110)
--- NOTE | 2023-10-12 09:26 | P.HPIM ---
History of Present Illness This is a pleasant 42 years old female with past medical history of type 1 diabetes mellitus on long-acting insulin and Jardiance at home. Patient states that she was out of green party here around town for 3 days and she forgot to take her insulin with her Yesterday she started having continuous vomiting nonstop, it looks like there is some coffee-ground discoloration of the vomitus Patient denies abdominal pain. No diarrhea. No issues with the bowel movement Patient denies chest pain or dizziness or dyspnea. No headache weakness or numbness No urinary complaints no dysuria She denies smoking or illicit drugs, she drinks alcohol occasionally. At home patient takes long-acting insulin 16 units at bedtime plus Jardiance 25 units plus NovoLog sliding scale. She has a glucometer at home and glucose range prior to hospitalization was 200-2 50 On admission she is afebrile, she is mildly hypotensive and tachycardic, blood pressure 85/57 after fluid resuscitation we will going to give another 1 L of bolus of NS pH is low at 7.11, pCO2 is all low as well at 28, potassium normal 4.6, urine analysis showing positive ketone. Patient has positive occult blood in the vomitus Rest of labs including INR, BMP liver enzymes troponin were unremarkable Urine hCG is negative, I offered to do serum hCG but patient declines Ultrasound of the abdomen is negative for gallstone or gallbladder disease. Review of Systems Review of systems CONSTITUTIONAL: No fever, no malaise, no fatigue. HEENT: No recent visual problems or hearing problems. Denied any sore throat. CARDIOVASCULAR: No orthopnea, PND, no palpitations, no syncope. PULMONARY: No shortness of breath, no cough, no hemoptysis. GASTROINTESTINAL: No diarrhea, no abdominal pain. Normoactive bowel sounds. NEUROLOGICAL: No headaches, no weakness, no numbness. HEMATOLOGICAL: Denies any bleeding or petechiae. GENITOURINARY: Denies any burning micturition, frequency, or urgency. MUSCULOSKELETAL/RHEUMATOLOGICAL: Denies any joint pain, swelling, or any muscle pain. ENDOCRINE: Denies any polyuria or polydipsia. Past Medical History Past Medical History: Blood Disorder, Diabetes Mellitus Additional Past Medical History / Comment(s): See Dr Wilson's H&P,dizziness, DM type 1, MTHFR (diagnosed after miscarriages & received heparin with after that.)., Wound on back- healed History of Any Multi-Drug Resistant Organisms: None Reported Past Surgical History: Orthopedic Surgery Additional Past Surgical History / Comment(s): 3 ACL reconstructions right knee, guide wire removal right knee, arthroscopy left knee,D&C ,I&D back wound w/ drain Past Anesthesia/Blood Transfusion Reactions: No Reported Reaction Additional Past Anesthesia/Blood Transfusion Reaction / Comment(s): no hx blood transfusion Past Psychological History: No Psychological Hx Reported Smoking Status: Former smoker Past Alcohol Use History: Occasional Past Drug Use History: None Reported - Past Family History Mother Family Medical History: No Reported History Medications and Allergies Home Medications Medication Instructions Recorded Confirmed Type Insulin Aspart [NovoLOG] See Protocol SQ ACHS PRN 07/16/22 10/12/23 History Insulin Glargine,Hum.rec.anlog 16 units SQ HS 07/16/22 10/12/23 History [Eugenio Seo] Empagliflozin [Jardiance] 25 mg PO DAILY 10/12/23 10/12/23 History prednisoLONE ACETATE 1% OPHTH 1 dose LEFT EYE DIRECTED 10/12/23 10/12/23 History [Pred Forte 1%] Allergies Allergy/AdvReac Type Severity Reaction Status Date / Time codeine AdvReac Nausea & Verified 10/12/23 08:28 Vomiting lisinopril AdvReac Cough Verified 10/12/23 08:28 Physical Exam Vitals: Vital Signs Temp Pulse Resp BP Pulse Ox 10/12/23 06:00 120 H 18 86/57 98 10/12/23 02:43 121 H 18 125/58 99 10/12/23 00:54 97 18 98 10/11/23 22:52 98.2 F 114 H 16 108/68 99 Intake and Output 10/11/23 10/12/23 10/12/23 22:59 06:59 14:59 Intake Total 16.393 Balance 16.393 Intake: Intake, IV Titration 16.393 Amount Insulin Regular 100 unit 16.393 In Sodium Chloride 0.9% 100 ml @ 0.1 UNITS/KG/HR 5.727 mls/hr IV .[id number] [facility] Rx#:[id number] Other: Weight 56.699 kg GENERAL: The patient is alert and oriented x3, not in any acute distress. Well developed, well nourished. HEENT: Pupils are round and equally reacting to light. EOMI. No scleral icterus. No conjunctival pallor. Normocephalic, atraumatic. No pharyngeal erythema. No thyromegaly. CARDIOVASCULAR: S1 and S2 present. No murmurs, rubs, or gallops. PULMONARY: Chest is clear to auscultation, no wheezing , no crackles. -ABDOMEN: Soft, nontender, nondistended, normoactive bowel sounds. No palpable organomegaly. Coffee-ground colored vomitus on the tongue and the bowl next to the bedside MUSCULOSKELETAL: No joint swelling or deformity. EXTREMITIES: No cyanosis, clubbing, or pedal edema. NEUROLOGICAL: Gross neurological examination did not reveal any focal deficits. SKIN: No rashes. no petechiae. Results CBC & Chem 7: 10/12/23 00:08 10/12/23 07:39 Labs: Abnormal Lab Results - Last 24 Hours (Table) 10/12/23 10/12/23 10/12/23 Range/Units 00:08 00:08 00:08 WBC 17.3 H (3.8-10.6) k/uL Neutrophils # 16.0 H (1.3-7.7) k/uL Lymphocytes # 0.7 L (1.0-4.8) k/uL APTT 21.1 L (22.0-30.0) sec VBG pH (7.31-7.41) VBG pCO2 (37-51) mmHg VBG HCO3 (24-28) mmol/L Chloride (98-107) mmol/L Carbon Dioxide (22-30) mmol/L BUN (7-17) mg/dL Glucose (74-99) mg/dL POC Glucose (mg/dL) (70-110) mg/dL Plasma Lactic Acid Qasim (0.7-2.0) mmol/L Urine Glucose (UA) 4+ H (Negative) Urine Ketones 4+ H (Negative) Ur Leukocyte Esterase Trace H (Negative) Urine WBC 13 H (0-5) /hpf Urine Bacteria Rare H (None) /hpf Urine Mucus Rare H (None) /hpf 10/12/23 10/12/23 10/12/23 Range/Units 00:08 00:08 00:08 WBC (3.8-10.6) k/uL Neutrophils # (1.3-7.7) k/uL Lymphocytes # (1.0-4.8) k/uL APTT (22.0-30.0) sec VBG pH 7.11 L* (7.31-7.41) VBG pCO2 28 L (37-51) mmHg VBG HCO3 9 L* (24-28) mmol/L Chloride (98-107) mmol/L Carbon Dioxide <5 L* (22-30) mmol/L BUN 21 H (7-17) mg/dL Glucose 268 H (74-99) mg/dL POC Glucose (mg/dL) (70-110) mg/dL Plasma Lactic Acid Qasim 2.2 H* (0.7-2.0) mmol/L Urine Glucose (UA) (Negative) Urine Ketones (Negative) Ur Leukocyte Esterase (Negative) Urine WBC (0-5) /hpf Urine Bacteria (None) /hpf Urine Mucus (None) /hpf 10/12/23 10/12/23 10/12/23 Range/Units 02:52 03:47 05:02 WBC (3.8-10.6) k/uL Neutrophils # (1.3-7.7) k/uL Lymphocytes # (1.0-4.8) k/uL APTT (22.0-30.0) sec VBG pH (7.31-7.41) VBG pCO2 (37-51) mmHg VBG HCO3 (24-28) mmol/L Chloride (98-107) mmol/L Carbon Dioxide (22-30) mmol/L BUN (7-17) mg/dL Glucose (74-99) mg/dL POC Glucose (mg/dL) 162 H 146 H 136 H (70-110) mg/dL Plasma Lactic Acid Qasim (0.7-2.0) mmol/L Urine Glucose (UA) (Negative) Urine Ketones (Negative) Ur Leukocyte Esterase (Negative) Urine WBC (0-5) /hpf Urine Bacteria (None) /hpf Urine Mucus (None) /hpf 10/12/23 10/12/23 10/12/23 Range/Units 05:57 07:20 07:39 WBC (3.8-10.6) k/uL Neutrophils # (1.3-7.7) k/uL Lymphocytes # (1.0-4.8) k/uL APTT (22.0-30.0) sec VBG pH (7.31-7.41) VBG pCO2 (37-51) mmHg VBG HCO3 (24-28) mmol/L Chloride 116 H (98-107) mmol/L Carbon Dioxide 6 L* (22-30) mmol/L BUN 18 H (7-17) mg/dL Glucose 216 H (74-99) mg/dL POC Glucose (mg/dL) 140 H 186 H (70-110) mg/dL Plasma Lactic Acid Qasim (0.7-2.0) mmol/L Urine Glucose (UA) (Negative) Urine Ketones (Negative) Ur Leukocyte Esterase (Negative) Urine WBC (0-5) /hpf Urine Bacteria (None) /hpf Urine Mucus (None) /hpf 10/12/23 Range/Units 08:20 WBC (3.8-10.6) k/uL Neutrophils # (1.3-7.7) k/uL Lymphocytes # (1.0-4.8) k/uL APTT (22.0-30.0) sec VBG pH (7.31-7.41) VBG pCO2 (37-51) mmHg VBG HCO3 (24-28) mmol/L Chloride (98-107) mmol/L Carbon Dioxide (22-30) mmol/L BUN (7-17) mg/dL Glucose (74-99) mg/dL POC Glucose (mg/dL) 240 H (70-110) mg/dL Plasma Lactic Acid Qasim (0.7-2.0) mmol/L Urine Glucose (UA) (Negative) Urine Ketones (Negative) Ur Leukocyte Esterase (Negative) Urine WBC (0-5) /hpf Urine Bacteria (None) /hpf Urine Mucus (None) /hpf Assessment and Plan Assessment: Diabetic ketoacidosis secondary to nonadherence/compliance to medication Type 1 diabetes mellitus Coffee-ground vomitus Dehydration and hypovolemia secondary to above Plan: Continue with insulin drip per protocol Patient counseled about the importance of adherence to treatment Continue fluid resuscitation Monitor hemoglobin Start Protonix Surgical team consult for possible GI bleed. There is no GI service in this facility this week Resume home medication Further recommendation based on the clinical course DVT prophylaxis: Mechanical. No anticoagulation for risk of GI bleed GI prophylaxis Protonix Prognosis is guarded
[2023-10-12 09:30] LABS: Glucose,Whole Blood 305 mg/dL (70-110)
[2023-10-12] MEDS: SODIUM CHLORIDE 0.9% 1,000 ML IV ONE (09:37)
[2023-10-12 09:48] LABS: HCT 37.5 % (34.0-46.0); HGB 12.2 gm/dL (11.4-16.0); MCH 30.8 pg (25.0-35.0); MCHC 32.5 g/dL (31.0-37.0); MCV 94.8 fL (80.0-100.0); Mean Platelet Volume 9.6; Platelet Count 196 k/uL (150-450); RBC 3.96 m/uL (3.80-5.40); RDW 12.2 % (11.5-15.5); WBC 15.7 k/uL (3.8-10.6)
[2023-10-12 10:31] LABS: Glucose,Whole Blood 248 mg/dL (70-110)
[2023-10-12 11:28] LABS: Glucose,Whole Blood 225 mg/dL (70-110)
[2023-10-12 12:35] LABS: Glucose,Whole Blood 204 mg/dL (70-110)
[2023-10-12 13:39] LABS: Glucose,Whole Blood 175 mg/dL (70-110)
[2023-10-12 14:36] LABS: Glucose,Whole Blood 151 mg/dL (70-110)
[2023-10-12 15:38] LABS: Glucose,Whole Blood 128 mg/dL (70-110)
[2023-10-12 16:39] LABS: Glucose,Whole Blood 127 mg/dL (70-110)
[2023-10-12 17:38] LABS: Glucose,Whole Blood 124 mg/dL (70-110)
--- NOTE | 2023-10-12 17:44 | P.CON ---
Consult Note - . Consult date: 10/12/23 Assessment/Plan:: History of Present Illness This is a 42 years old female with past medical history of type 1 diabetes mellitus on long-acting insulin and Jardiance at home. Patient states that she forgot to take her insulin for days. Yesterday she started having continuous vomiting nonstop, and apparently there was some coffee-ground discoloration of the vomitus. Patient denies abdominal pain. No diarrhea. No issues with the bowel movement. Patient's hemoglobin is stable. Review of Systems Review of systems CONSTITUTIONAL: No fever, no malaise, no fatigue. HEENT: No recent visual problems or hearing problems. Denied any sore throat. CARDIOVASCULAR: No orthopnea, PND, no palpitations, no syncope. PULMONARY: No shortness of breath, no cough, no hemoptysis. GASTROINTESTINAL: No diarrhea, no abdominal pain. Normoactive bowel sounds. NEUROLOGICAL: No headaches, no weakness, no numbness. HEMATOLOGICAL: Denies any bleeding or petechiae. GENITOURINARY: Denies any burning micturition, frequency, or urgency. MUSCULOSKELETAL/RHEUMATOLOGICAL: Denies any joint pain, swelling, or any muscle pain. ENDOCRINE: Denies any polyuria or polydipsia. Past Medical History Past Medical History: Blood Disorder, Diabetes Mellitus Additional Past Medical History / Comment(s): See Dr Wilson's H&P,dizziness, DM type 1, MTHFR (diagnosed after miscarriages & received heparin with after that.)., Wound on back- healed History of Any Multi-Drug Resistant Organisms: None Reported Past Surgical History: Orthopedic Surgery Additional Past Surgical History / Comment(s): 3 ACL reconstructions right knee, guide wire removal right knee, arthroscopy left knee,D&C ,I&D back wound w/ drain Past Anesthesia/Blood Transfusion Reactions: No Reported Reaction Additional Past Anesthesia/Blood Transfusion Reaction / Comment(s): no hx blood transfusion Past Psychological History: No Psychological Hx Reported Smoking Status: Former smoker Past Alcohol Use History: Occasional Past Drug Use History: None Reported - Past Family History Mother Family Medical History: No Reported History Physical Exam VSS GENERAL: The patient is alert and oriented x3, not in any acute distress. Well developed, well nourished. HEENT: Pupils are round and equally reacting to light. EOMI. No scleral icterus. No conjunctival pallor. Normocephalic, atraumatic. No pharyngeal erythema. No thyromegaly. CARDIOVASCULAR: S1 and S2 present. No murmurs, rubs, or gallops. PULMONARY: Chest is clear to auscultation, no wheezing , no crackles. -ABDOMEN: Soft, nontender, nondistended, normoactive bowel sounds. No palpable organomegaly. Coffee-ground colored vomitus on the tongue and the bowl next to the bedside MUSCULOSKELETAL: No joint swelling or deformity. EXTREMITIES: No cyanosis, clubbing, or pedal edema. NEUROLOGICAL: Gross neurological examination did not reveal any focal deficits. SKIN: No rashes. no petechiae. 42 year old female with DKA and coffee ground emesis -Clear Liquid Diet -Monitor Hemoglobin and Vitals -If hemoglobin trends down or patient has further episodes of coffee ground emesis will perform inpatient EGD -Nausea Control -Further recs pending patient's clinical course Ish Garcia DO [facility] [phone]
[2023-10-12 18:34] LABS: Glucose,Whole Blood 233 mg/dL (70-110)
[2023-10-12 19:34] LABS: Glucose,Whole Blood 232 mg/dL (70-110)
[2023-10-12 20:37] LABS: Glucose,Whole Blood 254 mg/dL (70-110)
[2023-10-12 21:37] LABS: Glucose,Whole Blood 229 mg/dL (70-110)
[2023-10-12 23:07] LABS: Glucose,Whole Blood 242 mg/dL (70-110)
[2023-10-12 23:58] LABS: Glucose,Whole Blood 252 mg/dL (70-110)
[2023-10-13 00:58] LABS: Glucose,Whole Blood 216 mg/dL (70-110)
[2023-10-13 01:16] LABS: Basophils % (A) 0 %; Eosinophils # (A) 0.1 k/uL (0-0.7); Eosinophils % (A) 1 %; HCT 35.1 % (34.0-46.0); HGB 11.7 gm/dL (11.4-16.0); Hypochromasia Slight; Lymphocytes # (A) 0.6 k/uL (1.0-4.8); Lymphocytes % (A) 4 %; MCH 30.8 pg (25.0-35.0); MCHC 33.3 g/dL (31.0-37.0); MCV 92.6 fL (80.0-100.0); Mean Platelet Volume 8.5; Monocytes # (A) 0.4 k/uL (0-1.0); Monocytes % (A) 3 %; Neutrophils % (A) 92 %; Platelet Count 196 k/uL (150-450); RBC 3.79 m/uL (3.80-5.40); RDW 12.2 % (11.5-15.5); WBC 14.2 k/uL (3.8-10.6)
[2023-10-13 01:37] LABS: African American GFR (CKD) >90 (>60 ml/min/1.73 sqM); Anion Gap 7 mmol/L; Blood Urea Nitrogen 11 mg/dL (7-17); Calcium 8.3 mg/dL (8.4-10.2); Carbon Dioxide 10 mmol/L (22-30); Chloride 117 mmol/L (98-107); Glucose 225 mg/dL (74-99); Non-African American GFR(CKD) >90 (>60 ml/min/1.73 sqM); Potassium 4.3 mmol/L (3.5-5.1); Sodium 134 mmol/L (137-145)
[2023-10-13 02:04] LABS: Glucose,Whole Blood 208 mg/dL (70-110)
[2023-10-13 03:01] LABS: Glucose,Whole Blood 202 mg/dL (70-110)
[2023-10-13 04:14] LABS: Glucose,Whole Blood 187 mg/dL (70-110)
[2023-10-13 05:12] LABS: Glucose,Whole Blood 200 mg/dL (70-110)
[2023-10-13 06:03] LABS: Glucose,Whole Blood 170 mg/dL (70-110)
[2023-10-13 06:58] LABS: Glucose,Whole Blood 173 mg/dL (70-110)
[2023-10-13 08:01] LABS: Basophils % (A) 0 %; Eosinophils % (A) 0 %; HCT 33.2 % (34.0-46.0); HGB 10.8 gm/dL (11.4-16.0); Lymphocytes # (A) 0.7 k/uL (1.0-4.8); Lymphocytes % (A) 6 %; MCH 29.9 pg (25.0-35.0); MCHC 32.6 g/dL (31.0-37.0); MCV 91.7 fL (80.0-100.0); Mean Platelet Volume 8.6; Monocytes # (A) 0.5 k/uL (0-1.0); Monocytes % (A) 4 %; Neutrophils # (A) 10.2 k/uL (1.3-7.7); Neutrophils % (A) 89 %; Platelet Count 183 k/uL (150-450); RBC 3.63 m/uL (3.80-5.40); RDW 12.1 % (11.5-15.5); WBC 11.5 k/uL (3.8-10.6)
[2023-10-13 08:10] LABS: Glucose,Whole Blood 176 mg/dL (70-110)
[2023-10-13 08:27] LABS: ALT 16 U/L (4-34); AST 17 U/L (14-36); African American GFR (CKD) >90 (>60 ml/min/1.73 sqM); Albumin 3.1 g/dL (3.5-5.0); Alkaline Phosphatase 57 U/L (38-126); Anion Gap 8 mmol/L; Blood Urea Nitrogen 9 mg/dL (7-17); Carbon Dioxide 15 mmol/L (22-30); Chloride 116 mmol/L (98-107); Glucose 172 mg/dL (74-99); Non-African American GFR(CKD) >90 (>60 ml/min/1.73 sqM); Sodium 139 mmol/L (137-145); Total Bilirubin 0.5 mg/dL (0.2-1.3); Total Protein 5.6 g/dL (6.3-8.2)
[2023-10-13] MEDS: METOCLOPRAMIDE 5 MG/ML 2 ML VIAL IVP PRN (08:58)
[2023-10-13 09:04] LABS: Glucose,Whole Blood 250 mg/dL (70-110)
[2023-10-13 10:04] LABS: Glucose,Whole Blood 293 mg/dL (70-110)
[2023-10-13 11:03] LABS: Glucose,Whole Blood 267 mg/dL (70-110)
[2023-10-13 11:49] LABS: ALT 18 U/L (4-34); AST 19 U/L (14-36); African American GFR (CKD) >90 (>60 ml/min/1.73 sqM); Albumin 3.2 g/dL (3.5-5.0); Alkaline Phosphatase 57 U/L (38-126); Anion Gap 5 mmol/L; Blood Urea Nitrogen 7 mg/dL (7-17); Calcium 8.1 mg/dL (8.4-10.2); Carbon Dioxide 18 mmol/L (22-30); Chloride 114 mmol/L (98-107); Glucose 259 mg/dL (74-99); Non-African American GFR(CKD) >90 (>60 ml/min/1.73 sqM); Potassium 3.9 mmol/L (3.5-5.1); Sodium 137 mmol/L (137-145); Total Bilirubin 0.6 mg/dL (0.2-1.3); Total Protein 5.7 g/dL (6.3-8.2)
[2023-10-13 12:04] LABS: Glucose,Whole Blood 224 mg/dL (70-110)
[2023-10-13] MEDS: PANTOPRAZOLE 40 MG/10 ML VIAL IV SCH (12:17)
[2023-10-13] MEDS: SODIUM CHLORIDE 0.45% 1,000 ML IV SCH (12:43)
[2023-10-13] MEDS: INSULIN DETEMIR (LEVEMIR) 100 UNIT/ML SYR SQ ONE (12:43)
[2023-10-13] MEDS: D5-0.45% NACL WITH KCL 20MEQ/L 1,000 ML IV SCH (12:48)
[2023-10-13 13:04] LABS: Glucose,Whole Blood 243 mg/dL (70-110)
[2023-10-13 13:16] VITALS: BMI 22.1
--- NOTE | 2023-10-13 14:47 | P.PN ---
Subjective Progress Note Date: 10/13/23 Patient is a 42-year-old female with past medical history of type 1 diabetes on long-acting insulin and Jardiance at home. She was at a republican here in town for 3 days and forgot to take her insulin with her. On 10/11/2023 she was having continuous emesis with some coffee-ground discoloration. She denies abdominal pain, diarrhea, issues with bowel movements, chest pain, dizziness, dyspnea, headache, weakness, numbness, dysuria. At home she takes long-acting insulin 16 units at bedtime plus Jardiance 25 units plus NovoLog sliding scale. Her home glucometer prior to hospitalization showed 200-250. On admission she is afebrile, mildly hypotensive, and tachycardic. Blood pressure 85/57 after fluid resuscitation. pH 7.11, pCO2 28, potassium 4.6. Urinalysis shows positive ketones. Vomitus positive for occult blood. Remainder of labs unremarkable. Ultrasound of abdomen negative for gallstone or gallbladder disease. 10/12. Patient seen and examined at bedside. Patient is laying comfortably in bed. WBCs 11.5, downtrending. Hemoglobin 10.8, A1c 7.7%. She has continued emesis this morning but mostly clear. No chest pain, dizziness, lightheadedness, melena, hematochezia. DVT prophylaxis: Mechanical. No anticoagulation for risk of GI bleed ROS reviewed. Pertinent positives and negatives discussed above, a complete review of systems was performed and all the other systems were negative. Physical Examination Vital signs are stable. General: No acute distress. HEENT: Head exam is unremarkable. Lungs: Bilateral breath sounds present; no rhonchi, wheezes, or rales. Heart: Rate and rhythm are regular. Abdomen: Nontender. Extremities: No edema present. Assessment Diabetic ketoacidosis, secondary to nonadherence to medication. Improved. Type 1 diabetes mellitus. Coffee-ground emesis. Improving but emesis continues. Dehydration hypovolemia secondary to vomiting and diabetic ketoacidosis. Plan Discontinue insulin drip, switch to SQ Levemir 20 units Patient counseled about the importance of adherence to treatment Discontinue D5 Continue Protonix, increase to twice daily Patient takes Jardiance at home, discontinue upon discharge. Further recommendation based on the clinical course Objective - Vital Signs Vital signs: Vital Signs Temp 97.7 F 10/13/23 00:54 Pulse 103 H 10/13/23 03:53 Resp 17 10/13/23 03:53 BP 134/71 10/13/23 03:53 Pulse Ox 98 10/13/23 03:53 FiO2 Intake & Output 10/12/23 10/13/23 10/13/23 18:59 06:59 18:59 Intake Total 45.705 23.360 Balance 45.705 23.360 Weight 56.699 kg Intake: Intake, IV Titration 45.705 23.360 Amount Insulin Regular 100 unit 45.705 23.360 In Sodium Chloride 0.9% 100 ml @ 0.1 UNITS/KG/HR 5.727 mls/hr IV .[id number] [facility] Rx#:[id number] Other: Voiding Method Toilet - Labs CBC & Chem 7: 10/13/23 06:43 10/13/23 11:21 Labs: Abnormal Lab Results - Last 24 Hours (Table) 10/12/23 10/12/23 10/12/23 Range/Units 07:39 09:28 10:29 WBC 15.7 H (3.8-10.6) k/uL RBC (3.80-5.40) m/uL Hgb (11.4-16.0) gm/dL Hct (34.0-46.0) % Neutrophils # (1.3-7.7) k/uL Lymphocytes # (1.0-4.8) k/uL Sodium (137-145) mmol/L Chloride (98-107) mmol/L Carbon Dioxide (22-30) mmol/L Glucose (74-99) mg/dL POC Glucose (mg/dL) 305 H 248 H (70-110) mg/dL Calcium (8.4-10.2) mg/dL Total Protein (6.3-8.2) g/dL Albumin (3.5-5.0) g/dL 10/12/23 10/12/23 10/12/23 Range/Units 11:27 12:34 13:37 WBC (3.8-10.6) k/uL RBC (3.80-5.40) m/uL Hgb (11.4-16.0) gm/dL Hct (34.0-46.0) % Neutrophils # (1.3-7.7) k/uL Lymphocytes # (1.0-4.8) k/uL Sodium (137-145) mmol/L Chloride (98-107) mmol/L Carbon Dioxide (22-30) mmol/L Glucose (74-99) mg/dL POC Glucose (mg/dL) 225 H 204 H 175 H (70-110) mg/dL Calcium (8.4-10.2) mg/dL Total Protein (6.3-8.2) g/dL Albumin (3.5-5.0) g/dL 10/12/23 10/12/23 10/12/23 Range/Units 14:35 15:37 16:37 WBC (3.8-10.6) k/uL RBC (3.80-5.40) m/uL Hgb (11.4-16.0) gm/dL Hct (34.0-46.0) % Neutrophils # (1.3-7.7) k/uL Lymphocytes # (1.0-4.8) k/uL Sodium (137-145) mmol/L Chloride (98-107) mmol/L Carbon Dioxide (22-30) mmol/L Glucose (74-99) mg/dL POC Glucose (mg/dL) 151 H 128 H 127 H (70-110) mg/dL Calcium (8.4-10.2) mg/dL Total Protein (6.3-8.2) g/dL Albumin (3.5-5.0) g/dL 10/12/23 10/12/23 10/12/23 Range/Units 17:33 18:32 19:33 WBC (3.8-10.6) k/uL RBC (3.80-5.40) m/uL Hgb (11.4-16.0) gm/dL Hct (34.0-46.0) % Neutrophils # (1.3-7.7) k/uL Lymphocytes # (1.0-4.8) k/uL Sodium (137-145) mmol/L Chloride (98-107) mmol/L Carbon Dioxide (22-30) mmol/L Glucose (74-99) mg/dL POC Glucose (mg/dL) 124 H 233 H 232 H (70-110) mg/dL Calcium (8.4-10.2) mg/dL Total Protein (6.3-8.2) g/dL Albumin (3.5-5.0) g/dL 10/12/23 10/12/23 10/12/23 Range/Units 20:36 21:36 23:06 WBC (3.8-10.6) k/uL RBC (3.80-5.40) m/uL Hgb (11.4-16.0) gm/dL Hct (34.0-46.0) % Neutrophils # (1.3-7.7) k/uL Lymphocytes # (1.0-4.8) k/uL Sodium (137-145) mmol/L Chloride (98-107) mmol/L Carbon Dioxide (22-30) mmol/L Glucose (74-99) mg/dL POC Glucose (mg/dL) 254 H 229 H 242 H (70-110) mg/dL Calcium (8.4-10.2) mg/dL Total Protein (6.3-8.2) g/dL Albumin (3.5-5.0) g/dL 10/12/23 10/13/23 10/13/23 Range/Units 23:57 00:52 00:52 WBC 14.2 H (3.8-10.6) k/uL RBC 3.79 L (3.80-5.40) m/uL Hgb (11.4-16.0) gm/dL Hct (34.0-46.0) % Neutrophils # 13.0 H (1.3-7.7) k/uL Lymphocytes # 0.6 L (1.0-4.8) k/uL Sodium 134 L (137-145) mmol/L Chloride 117 H (98-107) mmol/L Carbon Dioxide 10 L (22-30) mmol/L Glucose 225 H (74-99) mg/dL POC Glucose (mg/dL) 252 H (70-110) mg/dL Calcium 8.3 L (8.4-10.2) mg/dL Total Protein (6.3-8.2) g/dL Albumin (3.5-5.0) g/dL 10/13/23 10/13/23 10/13/23 Range/Units 00:55 02:03 03:00 WBC (3.8-10.6) k/uL RBC (3.80-5.40) m/uL Hgb (11.4-16.0) gm/dL Hct (34.0-46.0) % Neutrophils # (1.3-7.7) k/uL Lymphocytes # (1.0-4.8) k/uL Sodium (137-145) mmol/L Chloride (98-107) mmol/L Carbon Dioxide (22-30) mmol/L Glucose (74-99) mg/dL POC Glucose (mg/dL) 216 H 208 H 202 H (70-110) mg/dL Calcium (8.4-10.2) mg/dL Total Protein (6.3-8.2) g/dL Albumin (3.5-5.0) g/dL 10/13/23 10/13/23 10/13/23 Range/Units 04:12 05:10 06:02 WBC (3.8-10.6) k/uL RBC (3.80-5.40) m/uL Hgb (11.4-16.0) gm/dL Hct (34.0-46.0) % Neutrophils # (1.3-7.7) k/uL Lymphocytes # (1.0-4.8) k/uL Sodium (137-145) mmol/L Chloride (98-107) mmol/L Carbon Dioxide (22-30) mmol/L Glucose (74-99) mg/dL POC Glucose (mg/dL) 187 H 200 H 170 H (70-110) mg/dL Calcium (8.4-10.2) mg/dL Total Protein (6.3-8.2) g/dL Albumin (3.5-5.0) g/dL 10/13/23 10/13/23 10/13/23 Range/Units 06:43 06:43 06:57 WBC 11.5 H (3.8-10.6) k/uL RBC 3.63 L (3.80-5.40) m/uL Hgb 10.8 L (11.4-16.0) gm/dL Hct 33.2 L (34.0-46.0) % Neutrophils # 10.2 H (1.3-7.7) k/uL Lymphocytes # 0.7 L (1.0-4.8) k/uL Sodium (137-145) mmol/L Chloride 116 H (98-107) mmol/L Carbon Dioxide 15 L (22-30) mmol/L Glucose 172 H (74-99) mg/dL POC Glucose (mg/dL) 173 H (70-110) mg/dL Calcium 8.0 L (8.4-10.2) mg/dL Total Protein 5.6 L (6.3-8.2) g/dL Albumin 3.1 L (3.5-5.0) g/dL 10/13/23 Range/Units 08:09 WBC (3.8-10.6) k/uL RBC (3.80-5.40) m/uL Hgb (11.4-16.0) gm/dL Hct (34.0-46.0) % Neutrophils # (1.3-7.7) k/uL Lymphocytes # (1.0-4.8) k/uL Sodium (137-145) mmol/L Chloride (98-107) mmol/L Carbon Dioxide (22-30) mmol/L Glucose (74-99) mg/dL POC Glucose (mg/dL) 176 H (70-110) mg/dL Calcium (8.4-10.2) mg/dL Total Protein (6.3-8.2) g/dL Albumin (3.5-5.0) g/dL
[2023-10-13 16:42] LABS: Glucose,Whole Blood 159 mg/dL (70-110)
[2023-10-13] MEDS: INSULIN ASPART (NovoLOG) 100 UNIT/ML VIAL SQ SCH (16:43)
--- NOTE | 2023-10-13 16:46 | P.PN ---
Progress Note - Text Progress Note Date: 10/13/23 ROMINA. VSS. Hgb continues to trend down. Will monitor. VSS GENERAL: The patient is alert and oriented x3, not in any acute distress. Well developed, well nourished. HEENT: Pupils are round and equally reacting to light. EOMI. No scleral icterus. No conjunctival pallor. Normocephalic, atraumatic. No pharyngeal erythema. No thyromegaly. CARDIOVASCULAR: S1 and S2 present. No murmurs, rubs, or gallops. PULMONARY: Chest is clear to auscultation, no wheezing , no crackles. -ABDOMEN: Soft, nontender, nondistended, normoactive bowel sounds. No palpable organomegaly. Coffee-ground colored vomitus on the tongue and the bowl next to the bedside MUSCULOSKELETAL: No joint swelling or deformity. EXTREMITIES: No cyanosis, clubbing, or pedal edema. NEUROLOGICAL: Gross neurological examination did not reveal any focal deficits. SKIN: No rashes. no petechiae. 42 year old female with DKA and coffee ground emesis -Carb Diet -Monitor Hemoglobin and Vitals -If hemoglobin trends down or patient has further episodes of coffee ground emesis will perform inpatient EGD -Nausea Control -Further recs pending patient's clinical course Ish Garcia DO [facility] [phone]
[2023-10-13 20:22] LABS: Glucose,Whole Blood 132 mg/dL (70-110)
[2023-10-13] MEDS: INSULIN DETEMIR (LEVEMIR) 100 UNIT/ML SYR SQ SCH (20:38)
[2023-10-13] MEDS ORDERED: INSULIN DETEMIR (LEVEMIR) 100 UNIT/ML SYR SQ SCH (21:00)
[2023-10-13 23:25] LABS: Glucose,Whole Blood 85 mg/dL (70-110)
[2023-10-14 02:13] LABS: Glucose,Whole Blood 52 mg/dL (70-110)
[2023-10-14] MEDS: DEXTROSE 50% SYRINGE 50 ML IVP PRN (02:15)
[2023-10-14 02:49] LABS: Glucose,Whole Blood 126 mg/dL (70-110)
[2023-10-14 06:04] LABS: Glucose,Whole Blood 92 mg/dL (70-110)
[2023-10-14 06:59] LABS: HCT 35.8 % (34.0-46.0); HGB 12.1 gm/dL (11.4-16.0); MCHC 33.8 g/dL (31.0-37.0); MCV 88.8 fL (80.0-100.0); Mean Platelet Volume 8.6; Platelet Count 199 k/uL (150-450); RBC 4.03 m/uL (3.80-5.40); RDW 11.8 % (11.5-15.5)
[2023-10-14 07:10] LABS: African American GFR (CKD) >90 (>60 ml/min/1.73 sqM); Anion Gap 4 mmol/L; Blood Urea Nitrogen 7 mg/dL (7-17); Calcium 8.1 mg/dL (8.4-10.2); Carbon Dioxide 23 mmol/L (22-30); Chloride 108 mmol/L (98-107); Glucose 72 mg/dL (74-99); Non-African American GFR(CKD) >90 (>60 ml/min/1.73 sqM); Potassium 3.3 mmol/L (3.5-5.1); Sodium 135 mmol/L (137-145)
[2023-10-14] MEDS: POTASSIUM CHLORIDE ER 20 MEQ TAB.ER PO SCH (11:04)
[2023-10-14 11:27] LABS: Glucose,Whole Blood 87 mg/dL (70-110)
[2023-10-14 11:35] VITALS: BP 145/88; PULSE 84; RESP 18; TEMP 98.2
--- NOTE | 2023-10-14 11:54 | P.DS ---
Providers Date of admission: 10/12/23 01:27 Attending physician: Velasquez Pickard Consults: 10/12/23 09:21 Consult Physician Urgent Consulting Provider: Donavon Yu Consult Reason/Comments: coffee ground emesis Do you want consulting provider notified?: Yes Primary care physician: Nivia Leyva [facility] Course: Hospital Course: Patient is a 42-year-old female with past medical history of type 1 diabetes on long-acting insulin and Jardiance at home. She was at a republican here in town for 3 days and forgot to take her insulin with her. On 10/11/2023 she was having continuous emesis with some coffee-ground discoloration. Initial lab work done in the ER showed pH 7.11, pCO2 28, potassium 4.6. Urinalysis was positive for ketones. Emesis positive for occult blood. She was determined to have diabetic ketoacidosis. On 10/13/2023 a her diabetic ketoacidosis was resolved but she was still having episodes of clear emesis so she was given Reglan and her symptoms improved. Her symptoms have improved and been controlled with medical management. She has been hemodynamically stable. Final Diagnosis: #. Diabetic ketoacidosis Physical examination: Vital signs reviewed General: non toxic, no distress, appears at stated age, normal weight Derm: no unusual rashes/lesions, warm Head: atraumatic, normocephalic, symmetric Eyes: EOMI, no lid lag, anicteric sclera, pupils equal round reactive to light ENT: Nose and ears atraumatic Neck: No cervical lymphadenopathy, trachea midline, supple Mouth: no lip lesion, mucus membranes moist Cardiovascular: S1S2, regular rate and rhythm, no murmurs, rubs, gallops Lungs: CTA bilateral, no rhonchi, no rales, no accessory muscle use Abdominal: soft, nontender to palpation, no guarding Ext: muscle strength 5 out of 5 in all 4 extremities grossly, no gross muscle atrophy, no contractures, positive dorsalis pedis pulse bilateral, no edema Neuro: CN II-XI grossly intact, no gross focal neuro deficits Psych: Alert, oriented, appropriate affect and mood Patient Condition at Discharge: Good Plan - Discharge Summary Discharge Rx Participant: No New Discharge Prescriptions: New Pantoprazole [Protonix] 40 mg PO DAILY 10 Days #10 tab Continue Insulin Glargine,Hum.rec.anlog [Toujeo Solostar] 16 units SQ HS Insulin Aspart [NovoLOG] See Protocol SQ ACHS PRN PRN Reason: scale prednisoLONE ACETATE 1% OPHTH [Pred Forte 1%] 1 drop LEFT EYE DIRECTED Empagliflozin [Jardiance] 25 mg PO DAILY Discharge Medication List Insulin Aspart [NovoLOG] See Protocol SQ ACHS PRN 07/16/22 [History] Insulin Glargine,Hum.rec.anlog [Toujeo Solostar] 16 units SQ HS 07/16/22 [History] Empagliflozin [Jardiance] 25 mg PO DAILY 10/12/23 [History] prednisoLONE ACETATE 1% OPHTH [Pred Forte 1%] 1 drop LEFT EYE DIRECTED 10/12/23 [History] Pantoprazole [Protonix] 40 mg PO DAILY 10 Days #10 tab 10/14/23 [Rx] Follow up Appointment(s)/Referral(s): Nivia Leyva DO [Primary Care Provider] - 1-2 days Discharge Disposition: HOME SELF-CARE
--- NOTE | 2023-10-14 12:11 | P.PN ---
Progress Note - Text Progress Note Date: 10/14/23 NAEO. VSS. Hgb stable. Will monitor. VSS GENERAL: The patient is alert and oriented x3, not in any acute distress. Well developed, well nourished. HEENT: Pupils are round and equally reacting to light. EOMI. No scleral icterus. No conjunctival pallor. Normocephalic, atraumatic. No pharyngeal erythema. No thyromegaly. CARDIOVASCULAR: S1 and S2 present. No murmurs, rubs, or gallops. PULMONARY: Chest is clear to auscultation, no wheezing , no crackles. -ABDOMEN: Soft, nontender, nondistended, normoactive bowel sounds. No palpable organomegaly. Coffee-ground colored vomitus on the tongue and the bowl next to the bedside MUSCULOSKELETAL: No joint swelling or deformity. EXTREMITIES: No cyanosis, clubbing, or pedal edema. NEUROLOGICAL: Gross neurological examination did not reveal any focal deficits. SKIN: No rashes. no petechiae. 42 year old female with DKA and coffee ground emesis -Carb Diet -Monitor Hemoglobin and Vitals -Nausea Control -Further recs pending patient's clinical course Ish Garcia DO [facility] [phone]
[2023-10-14] MEDS ORDERED: INSULIN DETEMIR (LEVEMIR) 100 UNIT/ML SYR SQ SCH (21:00)
== END 2023-10-14 14:47 | disposition home or self-care (01) | DRG 638 ==
LOC: EC 22:50 → 3SCARD 10-12 01:27
PROVIDERS: ADMIT Internal Medicine; ATTEND Internal Medicine
DX: E10.10 Type 1 diabetes mellitus with ketoacidosis without coma (principal); K92.0 Hematemesis; E86.0 Dehydration; I95.9 Hypotension, unspecified; R00.0 Tachycardia, unspecified; E86.1 Hypovolemia; Z79.4 Long term (current) use of insulin; Z79.84 Long term (current) use of oral hypoglycemic drugs; Z87.891 Personal history of nicotine dependence; Z91.148 Patient's other noncompliance with medication regimen for other reason; Z88.5 Allergy status to narcotic agent; Z88.8 Allergy status to other drugs, medicaments and biological substances
CPT/HCPCS: 36415; 71045; 76705; 80048; 80051; 80053; 81001; 82009; 82150; 82271; 82565; 82803; 82947; 83036; 83605; 83690; 84100; 84520; 84703; 85025; 85027; 85610; 85730; 93005; 96361; 96374; 96375; 96376; 99291

== ENCOUNTER → 2023-11-15 | Outpatient (CLI) | payer OTHER ==
--- NOTE | 2023-11-16 19:57 | MM ---
Reason for Exam: Screening (asymptomatic). Last mammogram was performed 1 year(s) and 1 month(s) ago. Patient History: Menarche at age 17. First Full-Term at age 27. Maternal grandmother had breast cancer. Paternal grandmother had breast cancer. Last menstrual period: 10/07/2023 Risk Values: Jessica 5 year model risk: 0.6%. NCI Lifetime model risk: 10.1%. Prior Study Comparison: 10/13/2022 Bilateral MG screening mammo w CAD, [facility]. Tissue Density: The breasts are extremely dense, which lowers the sensitivity of mammography. Findings: Analyzed By CAD. A few benign round and punctate calcifications are unchanged. There is no suspicious group of microcalcifications or new suspicious mass in either breast. Overall Assessment: Benign, BI-RAD 2 Management: Screening Mammogram of both breasts in 1 year. Given the patient's extremely dense breast tissue, consideration can be given to supplementary screening with breast ultrasound. Patient should continue monthly self-breast exams. A clinical breast exam by your physician is recommended on an annual basis. This exam should not preclude additional follow-up of suspicious palpable abnormalities. Note on Jessica scores and lifetime risk: 1. A Jessica score greater than 3% is considered moderate risk. If this is the case, consider specialist referral to assess eligibility for a risk reducing agent. 2. If overall lifetime risk for the development of breast cancer is 20% or higher, the patient may qualify for future screening with alternating mammogram and breast MRI. [facility], , 11/16/2023 7:53 PM. Electronically signed and approved by: Marc Puga M.D. Radiologist
== END | disposition home or self-care (01) ==
LOC: RADMAMWWP 12:32
PROVIDERS: ATTEND Family Medicine
DX: Z12.31 Encounter for screening mammogram for malignant neoplasm of breast
CPT/HCPCS: 77063; 77067

== ENCOUNTER → 2024-05-17 | Outpatient (CLI) | payer OTHER ==
--- NOTE | 2024-05-18 15:57 | US ---
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 FINDINGS: GLAND SIZE: Right Lobe: 4.9 x 1.6 x 1.9 cm Overall Parenchyma: heterogeneous Left Lobe: 5.0 x 1.5 x 1.9 cm Overall Parenchyma: heterogeneous Isthmus Thickness: 0.2 cm NODULES RIGHT: # of nodules measured on right: 0 LEFT: # of nodules measured on left: 0 ISTHMUS: # of nodules measured in the isthmus: 0 Bilateral neck scanned, no evidence of lymphadenopathy. Heterogeneous thyroid bilaterally. IMPRESSION: 1. Heterogeneity without discrete nodules. 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 TR3: If nodule size is ? 2.5 cm, FNA is recommended. If nodule size is ? 1.5 cm, follow-up imaging at 1, 3, and 5 years is recommended. TR4: If nodule size is ? 1.5 cm, FNA is recommended. If nodule size is ? 1.0 cm, follow-up imaging at 1, 2, 3, and 5 years is recommended. TR5: If nodule size is ? 1.0 cm, FNA is recommended. If nodule size is ? 0.5 cm, annual follow-up for up to 5 years is recommended. [email or web address] [facility], , 05/18/2024 3:55 PM
== END | disposition home or self-care (01) ==
LOC: RADUSWWP 15:34
PROVIDERS: ATTEND Family Medicine
DX: E06.3 Autoimmune thyroiditis (principal); E07.89 Other specified disorders of thyroid
CPT/HCPCS: 76536